=== PATIENT | male | born 1960 | race Caucasian/White ===

== ENCOUNTER 2022-07-22 16:33 | Emergency (ER) | payer BC, SELFPAY ==
[2022-07-22] VITALS (53 sets, daily range): BP systolic 148–186; BP diastolic 73–111; PULSE 60–73; RESP 14–20; TEMP 36.4; O2SAT 94–100; BMI 30.8
--- NOTE | 2022-07-22 16:52 | ED.GENADULT ---
HPI - General Adult General Time Seen by Provider: 16:53 Date Seen: 07/22/22 Chief complaint: Chest Pain Stated complaint: Chest pains, Right arm numbness Time Seen by Provider: 07/22/22 16:39 Source: patient and RN notes reviewed Mode of arrival: ambulatory Limitations: no limitations History of Present Illness HPI narrative: Patient is a 7-year-old male presenting with his with episodic chest pain. He does not have any chest pain now. Over the last 2 days he has had 4 episodes at work and then 1 episode just walking to the mailbox. The chest pain came in the substernal lower chest area centrally with walking. He was at work for 4 these and the more he would walk the more intense it got. The last episode that he had earlier today at work, when he got back to his office he sat in the chair and noted right arm numbness but he could still uses arm. He also broke out in a cold sweat with that. He felt short of breath that time. Does not have a known cardiac history. He has not been sick recently no cough or cold symptoms. He was wondering if it was just reflux. Rest took the symptoms away. He has not taken any aspirin today, does not take aspirin. He has had no recent surgery, is never been told he has no indication for stain away from aspirin. After work, he attempted just to walk a short distance to the mailbox and the pain came back. He went to the house and sat in a recliner in the pain went away. With the right arm numbness, he states he could fully use it. The arm numbness came on after the chest symptoms. Related Data Home Medications Medication Instructions Recorded Confirmed No Known Home Medications 07/22/22 07/22/22 Allergies Allergy/AdvReac Type Severity Reaction Status Date / Time Penicillins Allergy Unknown Verified 07/22/22 16:51 Review of Systems Status of ROS: Reports: 10 or more systems reviewed and unremarkable except as noted in History and below PFSH PFS Social History Smoking Status: Current every day smoker What tobacco products do you use: cigarettes Smoking packs per day: 1 Smoking cigarettes per day: 20.0 Second hand tobacco smoke exposure: Yes How often do you have a drink containing alcohol: never How often do you have six or more drinks on one occasion: Never AUDIT-C Alcohol total score: 0 Non-prescribed substance use: denies use Exam Const: Vital Signs, click to edit/add: Vital Signs - 24 hr 07/22/22 16:48 07/22/22 17:24 07/22/22 17:37 Temperature 97.6 F Pulse Rate Pulse Rate [Pulse Oximeter] 73 65 Respiratory Rate 14 Blood Pressure Blood Pressure [Ri ght Upper Arm] 186/111 H 172/90 H Pulse Oximetry 98 98 97 Oxygen Delivery Me thod Room Air Room Air 07/22/22 17:08 07/22/22 17:15 07/22/22 17:32 Temperature Pulse Rate 72 71 Pulse Rate [Pulse Oximeter] Respiratory Rate Blood Pressure 172/90 H Blood Pressure [Ri ght Upper Arm] Pulse Oximetry 97 95 Oxygen Delivery Me thod 07/22/22 17:35 07/22/22 17:45 07/22/22 18:00 Temperature Pulse Rate 67 64 65 Pulse Rate [Pulse Oximeter] Respiratory Rate Blood Pressure Blood Pressure [Ri ght Upper Arm] Pulse Oximetry 96 95 97 Oxygen Delivery Me thod 07/22/22 18:02 07/22/22 18:03 07/22/22 18:15 Temperature Pulse Rate 65 64 65 Pulse Rate [Pulse Oximeter] Respiratory Rate Blood Pressure 176/93 H Blood Pressure [Ri ght Upper Arm] Pulse Oximetry 98 97 96 Oxygen Delivery Me thod 07/22/22 18:30 07/22/22 18:32 07/22/22 18:33 Temperature Pulse Rate 66 65 66 Pulse Rate [Pulse Oximeter] Respiratory Rate Blood Pressure 167/89 H Blood Pressure [Ri ght Upper Arm] Pulse Oximetry 97 95 97 Oxygen Delivery Me thod 07/22/22 18:45 07/22/22 19:00 07/22/22 19:02 Temperature Pulse Rate 66 63 64 Pulse Rate [Pulse Oximeter] Respiratory Rate Blood Pressure 174/90 H Blood Pressure [Ri ght Upper Arm] Pulse Oximetry 96 96 97 Oxygen Delivery Me thod 07/22/22 19:15 07/22/22 19:30 07/22/22 19:33 Temperature Pulse Rate 64 65 65 Pulse Rate [Pulse Oximeter] Respiratory Rate Blood Pressure 173/91 H Blood Pressure [Ri ght Upper Arm] Pulse Oximetry 97 96 95 Oxygen Delivery Me thod 07/22/22 19:34 07/22/22 19:45 07/22/22 20:00 Temperature Pulse Rate 63 63 69 Pulse Rate [Pulse Oximeter] Respiratory Rate Blood Pressure Blood Pressure [Ri ght Upper Arm] Pulse Oximetry 96 97 98 Oxygen Delivery Me thod 07/22/22 20:02 07/22/22 20:10 07/22/22 20:03 Temperature Pulse Rate 61 61 Pulse Rate [Pulse Oximeter] Respiratory Rate 20 Blood Pressure 162/89 H Blood Pressure [Ri ght Upper Arm] Pulse Oximetry 97 97 Oxygen Delivery Me thod 07/22/22 20:15 07/22/22 20:30 07/22/22 20:32 Temperature Pulse Rate 62 64 63 Pulse Rate [Pulse Oximeter] Respiratory Rate Blood Pressure 157/79 H Blood Pressure [Ri ght Upper Arm] Pulse Oximetry 97 96 95 Oxygen Delivery Me thod 07/22/22 20:45 07/22/22 21:00 07/22/22 21:02 Temperature Pulse Rate 64 63 61 Pulse Rate [Pulse Oximeter] Respiratory Rate Blood Pressure 163/78 H Blood Pressure [Ri ght Upper Arm] Pulse Oximetry 95 96 96 Oxygen Delivery Me thod 07/22/22 21:15 07/22/22 21:30 07/22/22 21:32 Temperature Pulse Rate 63 63 61 Pulse Rate [Pulse Oximeter] Respiratory Rate Blood Pressure 180/96 H Blood Pressure [Ri ght Upper Arm] Pulse Oximetry 96 97 97 Oxygen Delivery Me thod 07/22/22 21:33 07/22/22 21:45 07/22/22 22:00 Temperature Pulse Rate 62 64 62 Pulse Rate [Pulse Oximeter] Respiratory Rate Blood Pressure Blood Pressure [Ri ght Upper Arm] Pulse Oximetry 97 97 98 Oxygen Delivery Me thod 07/22/22 22:03 07/22/22 22:06 07/22/22 22:15 Temperature Pulse Rate 60 60 71 Pulse Rate [Pulse Oximeter] Respiratory Rate Blood Pressure 185/82 H 172/83 H Blood Pressure [Ri ght Upper Arm] Pulse Oximetry 98 97 97 Oxygen Delivery Me thod 07/22/22 22:30 07/22/22 22:32 07/22/22 22:33 Temperature Pulse Rate 62 62 68 Pulse Rate [Pulse Oximeter] Respiratory Rate Blood Pressure 175/80 H Blood Pressure [Ri ght Upper Arm] Pulse Oximetry 100 97 98 Oxygen Delivery Me thod 07/22/22 22:45 07/22/22 23:00 07/22/22 23:03 Temperature Pulse Rate 60 63 69 Pulse Rate [Pulse Oximeter] Respiratory Rate Blood Pressure 167/77 H Blood Pressure [Ri ght Upper Arm] Pulse Oximetry 99 98 97 Oxygen Delivery Me thod 07/22/22 23:15 07/22/22 23:30 07/22/22 23:32 Temperature Pulse Rate 69 67 71 Pulse Rate [Pulse Oximeter] Respiratory Rate Blood Pressure 148/73 H Blood Pressure [Ri ght Upper Arm] Pulse Oximetry 96 95 95 Oxygen Delivery Me thod 07/22/22 23:33 07/22/22 23:45 07/23/22 00:00 Temperature Pulse Rate 69 70 74 Pulse Rate [Pulse Oximeter] Respiratory Rate Blood Pressure Blood Pressure [Ri ght Upper Arm] Pulse Oximetry 95 94 93 Oxygen Delivery Me thod 07/23/22 00:02 07/23/22 00:15 07/23/22 01:44 Temperature 96.9 F L Pulse Rate 75 76 Pulse Rate [Pulse Oximeter] Respiratory Rate 20 Blood Pressure 149/77 H Blood Pressure [Ri ght Upper Arm] Pulse Oximetry 94 93 Oxygen Delivery Me thod 07/23/22 00:30 07/23/22 00:32 07/23/22 00:45 Temperature Pulse Rate 74 75 68 Pulse Rate [Pulse Oximeter] Respiratory Rate Blood Pressure 148/75 H Blood Pressure [Ri ght Upper Arm] Pulse Oximetry 93 95 93 Oxygen Delivery Me thod 07/23/22 01:00 07/23/22 01:02 07/23/22 01:15 Temperature Pulse Rate 72 74 73 Pulse Rate [Pulse Oximeter] Respiratory Rate Blood Pressure 133/69 Blood Pressure [Ri ght Upper Arm] Pulse Oximetry 93 93 94 Oxygen Delivery Me thod 07/23/22 01:30 07/23/22 01:32 Temperature Pulse Rate 70 70 Pulse Rate [Pulse Oximeter] Respiratory Rate Blood Pressure 138/69 Blood Pressure [Ri ght Upper Arm] Pulse Oximetry 94 94 Oxygen Delivery Me thod Documenting provider has reviewed patient's vital signs: yes Common normals: no apparent distress, oriented x3, no limitations, healthy appearing, alert and well nourished General appearance: cooperative, comfortable, well kempt and well developed Nutritional appearance: overweight HENMT: Common normals: normocephalic, head/scalp atraumatic, hearing grossly normal bilaterally and external ears normal Head and scalp: normocephalic and atraumatic External ear: external ears normal Eye: Common normals: PERRL, EOMs intact bilaterally, conjunctivae normal and no scleral icterus Conjunctiva: conjunctiva(e) normal Pupil: PERRL Neck & C-Spine: Common normals: full ROM, no lymphadenopathy, supple, no meningeal signs, no JVD and thyroid normal Thyroid: thyroid normal Chest: Common normals: inspection of chest normal and palpation of chest normal Resp: Common normals: normal respiratory effort, no retractions, no use of accessory muscles and clear to auscultation bilaterally Auscultation: clear to auscultation bilaterally Cardio: Common normals: no JVD, regular rate, regular rhythm, S1 normal heart sound, S2 normal heart sound, no gallops, no clicks and no murmurs Rate: regular rate Rhythm: regular rhythm Heart sounds: S1 normal and S2 normal GI: Common normals: Normal to inspection, nondistended, normoactive bowel sounds present, soft to palpation, non-tender, no hepatosplenomegaly and no masses Palpation: soft and no hepatosplenomegaly Extremity: Common normals: no calf tenderness and no pedal edema Neuro: Common normals: oriented x3 Sensorium/orientation: alert Meningeal signs: no meningeal signs Psych: Appearance: well kempt Course Course Hospital Course: Patient's history is very concerning for angina/unstable angina. Nursing staff has a point of care troponin running. We will give him 324 mg aspirin chewable. Will get a portable chest x-ray and full complement of labs including D-dimer. I am concerned that this represents atherosclerotic coronary artery disease. Other potential etiologies are atypical presentation of pulmonary emboli, dissection or aneurysm. He will be monitored on pulse oximetry and cardiac monitoring. If they would need to go away of a case therapist, have reviewed this with them and they would choose [facility]. The understand right now that it is extremely tenuous with transfers, if it comes to that I will do my best but he may need to see Cardiology were ever we can get him to. Reevaluation(s) Reevaluation #1: Have reviewed with patient and his that the troponin is starting to trend up, explain this to them. Reviewed the EKGs in the concern for the pattern of distribution. Am awaiting a call back from [facility] to see if they will accept him. He is still pain free. Reviewed heparin, have ordered this. Went over risks and benefits of heparin. He consents to treatment with this. Time: 21:30 Consultations Consultation #1: Have contacted transfer center at [facility], spoke with DAIANA Jacques. He will be reviewing EKG/labs with cardiology and calling back. Did speak with Dr. Zamzam Hernandez initially, she did not accept patient, wanted the 3 hour troponin, stated that she had others in queue with higher acuity needs. Will call back when I have that. Spoke with Cristopher cardiology triage officer at 933pm, they have no bed availability, we can call back in the morning to see if there have been discharges. They have no wait list. Patient is updated on this, happy to go to the [facility] if we can arrange. Still chest pain free at rest. Time: 18:18 Consultation #2: Spoke with the hospitalist at [place] Dr. Min. She will except, we will have about a 4-8 hour wait for bed placement. Time: 22:22 Vital Signs Vital signs: Initial Vital Signs Temperature 97.6 F 07/22/22 16:48 Temperature Source Temporal Artery Scan 07/22/22 16:48 Pulse Rate 73 07/22/22 16:48 Blood Pressure 186/111 H 07/22/22 16:48 Blood Pressure Mean 136 07/22/22 16:48 Blood Pressure Position Supine 07/22/22 16:48 Pulse Oximetry 98 07/22/22 16:48 Oxygen Delivery Method 07/22/22 16:48 Vital Signs Temperature 97.6 F 07/22/22 16:48 Pulse Rate 73 07/22/22 16:48 Blood Pressure 186/111 H 07/22/22 16:48 Pulse Oximetry 98 07/22/22 16:48 Oxygen Delivery Method 07/22/22 16:48 Temperature 96.9 F L 07/23/22 01:44 Pulse Rate 70 07/23/22 01:32 Respiratory Rate 20 07/23/22 01:44 Blood Pressure 138/69 07/23/22 01:32 Pulse Oximetry 94 07/23/22 01:32 Oxygen Delivery Method 07/22/22 17:37 Medical Decision Making Medical Records Medical records reviewed: Yes I reviewed the patient's medical records Medical records narrative: Medical Problems: Tubular adenoma Erectile dysfunction Annual physical exam HLD (hyperlipidemia) KAYLYN (obstructive sleep apnea) Sleep study revealed mild KAYLYN in Jun 2017. Bump Suspected cranial suture line. Surgical Problems: History of sinus surgery Polyp removal. History of colonoscopy 06/2016 to repeat 2019 Family History Problems: Family history of hyperlipidemia Parents. Family history of hypertension Parents. Social History Problems: Consumes alcohol occasionally Does not use illicit drugs Former smoker Stopped 03/15/17. Lab Data Lab results reviewed: Yes I reviewed the patient's lab results Labs: Lab Results 07/22/22 07/22/22 07/22/22 Range/Units 16:55 16:55 16:55 WBC 8.79 (4.50-11.00) K/uL RBC 5.15 (4.30-5.90) m/uL Hgb 15.0 (13.5-17.5) gm/dL Hct 43.8 (37.0-53.0) % MCV 85 (80-100) fL MCH 29 (26-34) pg MCHC 34 (32-36) gm/dL RDW Coeff of Isaiah 12.7 (11.5-15.5) % Plt Count 318 (140-440) K/uL Neut % (Auto) 67.6 (42.0-72.0) % Lymph % (Auto) 20.6 (20-44) % [place] % (Auto) 6.8 (0.0-11.0) % Eos % (Auto) 4.0 (0.0-7.0) % Baso % (Auto) 0.8 (0.0-3.0) % Neut # (Auto) 5.94 (1.7-7.0) K/uL Lymph # (Auto) 1.81 (0.90-2.90) K/uL [place] # (Auto) 0.60 (0.00-0.90) K/UL Eos # (Auto) 0.35 (0.00-0.50) K/uL Baso # (Auto) 0.07 (0.00-0.30) K/uL INR (0.91-1.10) APTT (23-33) Seconds D-Dimer Quant (PE/DVT) 0.29 (0.00-0.50) ug/ml Sodium 139 (135-149) mmol/L Potassium 4.0 (3.6-5.1) mmol/L Chloride 106 (96-114) mmol/L Carbon Dioxide 26 (20-32) mmol/L BUN 18 (7-30) mg/dL Creatinine 0.9 (0.5-1.5) mg/dL Estimated Creat Clear 90.12 Estimated GFR 98 ml/min Glucose 103 (60-115) mg/dL Calcium 9.1 (8.4-10.6) mg/dL Magnesium 2.1 (1.5-2.6) mg/dL Total Bilirubin 0.4 (0.1-1.5) mg/dL AST 21 (12-35) U/L ALT 26 (4-50) U/L Alkaline Phosphatase 110 (40-150) U/L Troponin I 0.04 (0.01-0.04) ng/mL C-Reactive Protein 0.7 (0.5-1.0) mg/dL NT-Pro-B Natriuret Pep 176 pg/mL Total Protein 7.2 (6.0-8.3) g/dL Albumin 4.4 (3.3-5.0) g/dL SARS-CoV-2 (PCR) (Negative) POC Troponin I (0.01-0.04) ng/ml 07/22/22 07/22/22 07/22/22 Range/Units 17:04 17:04 17:07 WBC (4.50-11.00) K/uL RBC (4.30-5.90) m/uL Hgb (13.5-17.5) gm/dL Hct (37.0-53.0) % MCV (80-100) fL MCH (26-34) pg MCHC (32-36) gm/dL RDW Coeff of Isaiah (11.5-15.5) % Plt Count (140-440) K/uL Neut % (Auto) (42.0-72.0) % Lymph % (Auto) (20-44) % [place] % (Auto) (0.0-11.0) % Eos % (Auto) (0.0-7.0) % Baso % (Auto) (0.0-3.0) % Neut # (Auto) (1.7-7.0) K/uL Lymph # (Auto) (0.90-2.90) K/uL [place] # (Auto) (0.00-0.90) K/UL Eos # (Auto) (0.00-0.50) K/uL Baso # (Auto) (0.00-0.30) K/uL INR 0.97 (0.91-1.10) APTT 33 (23-33) Seconds D-Dimer Quant (PE/DVT) (0.00-0.50) ug/ml Sodium (135-149) mmol/L Potassium (3.6-5.1) mmol/L Chloride (96-114) mmol/L Carbon Dioxide (20-32) mmol/L BUN (7-30) mg/dL Creatinine (0.5-1.5) mg/dL Estimated Creat Clear Estimated GFR ml/min Glucose (60-115) mg/dL Calcium (8.4-10.6) mg/dL Magnesium (1.5-2.6) mg/dL Total Bilirubin (0.1-1.5) mg/dL AST (12-35) U/L ALT (4-50) U/L Alkaline Phosphatase (40-150) U/L Troponin I (0.01-0.04) ng/mL C-Reactive Protein (0.5-1.0) mg/dL NT-Pro-B Natriuret Pep pg/mL Total Protein (6.0-8.3) g/dL Albumin (3.3-5.0) g/dL SARS-CoV-2 (PCR) Negative SARS-CoV-2 (Negative) POC Troponin I 0.06 H (0.01-0.04) ng/ml 07/22/22 Range/Units 19:55 WBC (4.50-11.00) K/uL RBC (4.30-5.90) m/uL Hgb (13.5-17.5) gm/dL Hct (37.0-53.0) % MCV (80-100) fL MCH (26-34) pg MCHC (32-36) gm/dL RDW Coeff of Isaiah (11.5-15.5) % Plt Count (140-440) K/uL Neut % (Auto) (42.0-72.0) % Lymph % (Auto) (20-44) % [place] % (Auto) (0.0-11.0) % Eos % (Auto) (0.0-7.0) % Baso % (Auto) (0.0-3.0) % Neut # (Auto) (1.7-7.0) K/uL Lymph # (Auto) (0.90-2.90) K/uL [place] # (Auto) (0.00-0.90) K/UL Eos # (Auto) (0.00-0.50) K/uL Baso # (Auto) (0.00-0.30) K/uL INR (0.91-1.10) APTT (23-33) Seconds D-Dimer Quant (PE/DVT) (0.00-0.50) ug/ml Sodium (135-149) mmol/L Potassium (3.6-5.1) mmol/L Chloride (96-114) mmol/L Carbon Dioxide (20-32) mmol/L BUN (7-30) mg/dL Creatinine (0.5-1.5) mg/dL Estimated Creat Clear Estimated GFR ml/min Glucose (60-115) mg/dL Calcium (8.4-10.6) mg/dL Magnesium (1.5-2.6) mg/dL Total Bilirubin (0.1-1.5) mg/dL AST (12-35) U/L ALT (4-50) U/L Alkaline Phosphatase (40-150) U/L Troponin I 0.05 H (0.01-0.04) ng/mL C-Reactive Protein (0.5-1.0) mg/dL NT-Pro-B Natriuret Pep pg/mL Total Protein (6.0-8.3) g/dL Albumin (3.3-5.0) g/dL SARS-CoV-2 (PCR) (Negative) POC Troponin I (0.01-0.04) ng/ml Imaging Data Chest x-ray: Attestation: I have reviewed the pertinent imaging results. My impression: No acute pathology on my preliminary review of this portable chest x-ray. Radiologist's impression: Patient: TERI PAL Facility:?[facility] Patient ID:?[id number] Site Patient ID:?[id number]. Site :?[id number] Study:?XRay Chest PORTBLE ONE VIEW-07/22/2022 5:36:14 PM Ordering Physician:Ady Le Final Report: INDICATION: CHEST PAIN TECHNIQUE: Chest 1 view. COMPARISON: None. FINDINGS: Cardiovascular and mediastinum: Heart size and vasculature are normal in caliber and appearance. Mediastinum is within normal limits. Lungs and pleural space: Lungs are clear. No sign of infiltrate or mass. No sign of pleural effusion. No pneumothorax. Bones and soft tissues: No significant findings. IMPRESSION: Unremarkable chest. Dictated by: Anil Cantu MD @ 07/22/2022 17:55:18 (Electronic Signature) ECG Data Attestation: I personally reviewed and interpreted this ECG as follows: (Sinus rhythm with first-degree AV block, 60 beats per minute. He has flipped T-waves V1 through V4 but no definite ST segment changes, possibly very slight flat depression V2 V3. QT corrected 412 milliseconds.) Prior ECG tracings: not available for review Interpretation: Sinus rhythm with first degree AV block, flipped T waves V1-V4, no change from prior EKG. Critical Care Time Critical Care Time Critical Care Time: No Discharge Plan Discharge Clinical Impression: Non-ST elevated myocardial infarction (non-STEMI), Chest pain Patient Disposition: [facility] Prescriptions: No Action No Known Home Medications Stand Alone Forms: [employer] Info Instructions
--- NOTE | 2022-07-22 17:04 | CRLHL7_ITS ---
For Patients: As a result of the Century Cures Act, medical imaging exams and procedure reports are released immediately into your electronic medical record. You may view this report before your referring provider. If you have questions, please contact your health care provider. INDICATION: CHEST PAIN TECHNIQUE: Chest 1 view. COMPARISON: None. FINDINGS: Cardiovascular and mediastinum: Heart size and vasculature are normal in caliber and appearance. Mediastinum is within normal limits. Lungs and pleural space: Lungs are clear. No sign of infiltrate or mass. No sign of pleural effusion. No pneumothorax. Bones and soft tissues: No significant findings. IMPRESSION: Unremarkable chest. Dictated by: Anil Cantu MD @ 07/22/2022 17:55:18 (Electronically Signed)
[2022-07-22] MEDS: ASPIRIN 81 MG TAB.CHEW 324 MG PO (17:06)
[2022-07-22 17:13] LABS: Basophils Absolute Auto 0.07 K/uL (0.00-0.30); Basophils Percent Auto 0.8 % (0.0-3.0); Eosinophils Absolute Auto 0.35 K/uL (0.00-0.50); Hematocrit 43.8 % (37.0-53.0); Immature Granulocytes Abs Auto 0.02 K/uL (0.00-0.30); Immature Granulocytes Pct Auto 0.2 %; Lymphocytes Absolute Auto 1.81 K/uL (0.90-2.90); Lymphocytes Percent Auto 20.6 % (20-44); Mean Corpuscular HGB Conc 34 gm/dL (32-36); Mean Corpuscular Hemoglobin 29 pg (26-34); Mean Corpuscular Volume 85 fL (80-100); Monocytes Percent Auto 6.8 % (0.0-11.0); Neutrophils Absolute Auto 5.94 K/uL (1.7-7.0); Neutrophils Percent Auto 67.6 % (42.0-72.0); Platelet Count* 318 K/uL (140-440); RDW Coefficient of Variation % 12.7 % (11.5-15.5); Red Blood Count 5.15 m/uL (4.30-5.90); White Blood Count* 8.79 K/uL (4.50-11.00)
[2022-07-22 17:14] LABS: Troponin, Point-of-Care* 0.06 ng/ml (0.01-0.04)
[2022-07-22 17:21] LABS: Slide Review Reflex No
[2022-07-22 17:23] LABS: Albumin* 4.4 g/dL (3.3-5.0); Chloride* 106 mmol/L (96-114); Sodium* 139 mmol/L (135-149)
[2022-07-22 17:25] LABS: Creatinine* 0.9 mg/dL (0.5-1.5); Est. Creatinine Clearance* 90.12; Estimated Glomerular Filt Rate 98 ml/min
[2022-07-22 17:26] LABS: Alanine Aminotransferase* 26 U/L (4-50); Alkaline Phosphatase* 110 U/L (40-150); Aspartate Amino Transferase* 21 U/L (12-35); Bilirubin Total* 0.4 mg/dL (0.1-1.5); Blood Urea Nitrogen* 18 mg/dL (7-30); Carbon Dioxide* 26 mmol/L (20-32); Total Protein* 7.2 g/dL (6.0-8.3)
[2022-07-22 17:27] LABS: Calcium* 9.1 mg/dL (8.4-10.6); Glucose* 103 mg/dL (60-115); Magnesium* 2.1 mg/dL (1.5-2.6)
[2022-07-22 17:28] LABS: D Dimer Quantitative* 0.29 ug/ml (0.00-0.50)
[2022-07-22 17:29] LABS: C Reactive Protein* 0.7 mg/dL (0.5-1.0)
[2022-07-22 17:37] LABS: NT Pro B Type NatriureticPept* 176 pg/mL
[2022-07-22 17:38] LABS: Troponin I* 0.04 ng/mL (0.01-0.04)
[2022-07-22 17:53] LABS: SARS PCR* Negative SARS-CoV-2 (Negative)
[2022-07-22 20:35] LABS: Troponin I* 0.05 ng/mL (0.01-0.04)
[2022-07-22 21:49] LABS: INR 0.97 (0.91-1.10); Partial Thromboplastin Time* 33 Seconds (23-33); Prothrombin Time 13.5 Seconds
[2022-07-22] MEDS: HEPARIN 5,000 UNIT/0.5 ML INJ 4000 UNIT IVP (22:20)
[2022-07-22] MEDS: HEPARIN 25,000 UNIT/500 ML BAG 20 UNIT IV (22:21)
[2022-07-22] MEDS: SODIUM CHLORIDE 0.9 % (FLUSH) 10 ML SYRINGE 5 ML IVF (22:22)
--- NOTE | 2022-07-22 23:20 | ED.NURSE ---
Gave report to Nikki at [facility] room # [id number], EMS called. Continues to have no CP or numbness. Denies Pain. Heparin gtt started
[2022-07-23] VITALS (12 sets, daily range): BP systolic 133–149; BP diastolic 69–77; PULSE 68–76; RESP 20; TEMP 36.1; O2SAT 93–95
--- NOTE | 2022-07-23 01:45 | ED.NURSE ---
pt tx with EMS, updated RN at [facility]. Vitally stable on transfer. Room air. Denies pain and CP
== END 2022-07-23 01:49 | disposition short-term general hospital (02) ==
PROVIDERS: Emergency Provider Family Medicine; PCP Family Medicine
DX: I21.4 Non-ST elevation (NSTEMI) myocardial infarction (principal)
CPT/HCPCS: 36415; 71045; 80053; 83735; 83880; 84484; 85025; 85027; 85379; 85610; 85730; 86140; 87635; 93005; 94761; 96374; 99285; A9270; J1644

== ENCOUNTER 2022-07-23 01:36 | Outpatient (CLI) | payer BC, SELFPAY | END 2022-07-23 01:37 | disposition home or self-care (01) | LOC: AMB 07:19 | PROVIDERS: PCP Family Medicine; Visit Provider Family Medicine | DX: R07.89 Other chest pain (principal) | CPT/HCPCS: A0425; A0434 ==

== ENCOUNTER 2022-07-28 15:37 | Outpatient (CLI) | payer BC, SELFPAY ==
[2022-07-28 22:36] LABS: Chloride* 105 mmol/L (96-114); Potassium* 4.6 mmol/L (3.6-5.1); Sodium* 140 mmol/L (135-149)
[2022-07-28 22:39] LABS: Carbon Dioxide* 26 mmol/L (20-32)
[2022-07-28 22:40] LABS: Blood Urea Nitrogen* 22 mg/dL (7-30); Calcium* 9.5 mg/dL (8.4-10.6); Glucose* 119 mg/dL (60-115)
[2022-07-28 22:59] LABS: Creatinine* 1.2 mg/dL (0.5-1.5); Estimated Glomerular Filt Rate 69 ml/min
== END 2022-07-28 15:38 | disposition home or self-care (01) ==
LOC: FRMREF 15:37
PROVIDERS: PCP Family Medicine; Visit Provider Family Medicine
DX: I21.4 Non-ST elevation (NSTEMI) myocardial infarction (principal)
CPT/HCPCS: 80048

== ENCOUNTER 2022-12-23 07:16 | Emergency (ER) | payer BC, SELFPAY ==
[2022-12-23] VITALS (9 sets, daily range): BP systolic 104–129; BP diastolic 55–84; PULSE 53–62; RESP 16–18; TEMP 35.8; O2SAT 96–100; BMI 30.7
--- NOTE | 2022-12-23 08:10 | CRLHL7_ITS ---
For Patients: As a result of the Century Cures Act, medical imaging exams and procedure reports are released immediately into your electronic medical record. You may view this report before your referring provider. If you have questions, please contact your health care provider. Indication: Chest Pain Comparison: None available. Technique: Single AP view chest Findings: There is mild interstitial prominence. There is no focal consolidation, effusion, or pneumothorax. The cardiac silhouette is mildly prominent. The bony thorax is grossly intact. Impression: Mild interstitial prominence which may represent minimal pulmonary vascular congestion. No dense consolidation is identified. Dictated by Luan Casiano MD @ 12/23/2022 8:35:33 AM (Electronically Signed)
--- NOTE | 2022-12-23 08:10 | ED.CHESTPAIN ---
HPI - Chest Pain General Time Seen by Provider: 08:00 Date Seen: 12/23/22 Chief Complaint: Chest Pain Stated Complaint: chest tightness,heartburn feeling, shortness of br Time Seen by Provider: 12/23/22 07:58 Source: patient and RN notes reviewed Mode of arrival: ambulatory Limitations: no limitations History of Present Illness HPI narrative: Patient is a 62-year-old male coming in with an episode of chest burning reminiscent of symptoms similar to his heart attack in July. He was at work just walking a short distance where he had some lower substernal heartburn type feeling. [place] like he could not per just felt uncomfortable. Went to his office in took an 81 mg aspirin and sublingual nitroglycerin. Symptoms completely resolved. He has 2 stents in LAD distribution per his report. He also has found out that he does have peripheral arterial disease, they show me a CT report that does show some distal peripheral blockage. He notes if he walks any distance he will get a burning sensation in his calves. With his heart attack in July, was having some heartburn type symptoms that worsened 1 day to the point that he came in. He had this similar sense of not being able to burp in being uncomfortable. He states he was found have a heart attack and transferred to [place]. No shortness of breath. He did take an 81 mg aspirin at home with his morning meds as well as the extra 1 at work. He is on Brilinta, cholesterol medicine and lisinopril. Pertinent past history: coronary artery disease and prior ME Prior episodes: Yes Onset: during exertion Pain radiation: none Related Data Home Medications Medication Instructions Recorded Confirmed aspirin 81 mg tablet,delayed 81 mg PO QDAY 07/28/22 12/23/22 release nitroglycerin 0.4 mg sublingual 0.4 mg sublingual Q5M PRN 07/28/22 12/23/22 tablet Previous Rx's Medication Instructions Recorded amlodipine 2.5 mg tablet 2.5 mg PO QDAY #90 tabs 08/29/22 bupropion HCl 150 mg 24 hr tablet, 150 mg PO QAM #90 tabs 10/28/22 extended release (Wellbutrin XL) carvedilol 25 mg tablet 25 mg PO BID #180 tabs 10/28/22 losartan 50 mg tablet 50 mg PO QDAY #90 tabs 05/16/23 rosuvastatin 20 mg tablet 20 mg PO QHS #90 tabs 10/28/22 ticagrelor 90 mg tablet (Brilinta) 90 mg PO BID #180 tabs 10/28/22 Allergies Allergy/AdvReac Type Severity Reaction Status Date / Time Penicillins Allergy Unknown Verified 10/30/22 14:49 Review of Systems Status of ROS Reports: 6 or more systems reviewed and unremarkable except as noted in History and below [facility] Medical History (Updated 12/23/22 @ 10:57 by Mimi Soliz MD) NSTEMI (non-ST elevated myocardial infarction) ?I21.4 - Non-ST elevation (NSTEMI) myocardial infarction (ICD-10) Tubular adenoma ?D36.9 - Benign neoplasm, unspecified site (ICD-10) History of smoking ?Z87.891 - Personal history of nicotine dependence (ICD-10) Pediculosis corporis ?B85.1 - Pediculosis due to Pediculus humanus corporis (ICD-10) Surgical History (Updated 08/02/22 @ 11:43 by Ronal Escalante) History of sinus surgery ?Z98.890 - Other specified postprocedural states (ICD-10) History of colonoscopy ?Z98.890 - Other specified postprocedural states (ICD-10) Family History (Updated 08/02/22 @ 11:43 by Ronal Escalante) Mother Hyperlipidemia High blood pressure Father Hyperlipidemia High blood pressure Social History (Updated 08/08/22 @ 16:16 by Domi Thomas MD) Narrative: consumes alcohol occasionally does not use illicit drugs former smoker- stopped 03/15/17 Smoking Status: Former smoker What tobacco products do you use: cigarettes Smoking packs per day: 1 Smoking cigarettes per day: 20.0 Smoking quit date/years: <= 15 years ago Second hand tobacco smoke exposure: Yes How often do you have a drink containing alcohol: monthly or less How often do you have six or more drinks on one occasion: Never AUDIT-C Alcohol total score: 1 Non-prescribed substance use: denies use Little interest or pleasure in doing things: more than half the days Feeling down, depressed, or hopeless: several days Exam Const Vital Signs, click to edit/add: Vital Signs - 24 hr 12/23/22 07:22 12/23/22 07:30 12/23/22 08:00 Temperature 96.4 F L Pulse Rate Pulse Rate [Pulse Oximeter] 62 60 59 L Respiratory Rate 16 18 18 Blood Pressure [Right Upper Arm] 120/68 114/61 104/60 Pulse Oximetry 99 99 96 Oxygen Delivery Method Room Air Room Air Room Air 12/23/22 08:30 12/23/22 09:00 12/23/22 09:13 Temperature Pulse Rate 53 L Pulse Rate [Pulse Oximeter] 58 L 57 L Respiratory Rate 18 18 Blood Pressure [Right Upper Arm] 114/66 115/64 Pulse Oximetry 97 96 99 Oxygen Delivery Method Room Air Room Air Documenting provider has reviewed patient's vital signs: yes Common normals: no apparent distress, average body habitus, oriented x3, no limitations, healthy appearing and alert General appearance: cooperative, comfortable, well kempt and well developed HENMT Common normals: normocephalic, head/scalp atraumatic and hearing grossly normal bilaterally Head and scalp: normocephalic and atraumatic Eye Common normals: PERRL, EOMs intact bilaterally, conjunctivae normal and no scleral icterus Conjunctiva: conjunctiva(e) normal Pupil: PERRL Neck & C-Spine Common normals: full ROM, no lymphadenopathy, supple and no JVD Chest Common normals: inspection of chest normal and palpation of chest normal Resp Common normals: normal respiratory effort, no retractions, no use of accessory muscles and clear to auscultation bilaterally Effort & inspection: able to speak in complete sentences Auscultation: clear to auscultation bilaterally Cardio Common normals: no JVD, regular rate, regular rhythm, S1 normal heart sound, S2 normal heart sound, no gallops and no clicks Rate: regular rate Rhythm: regular rhythm Heart sounds: S1 normal and S2 normal GI Common normals: Normal to inspection, nondistended, normoactive bowel sounds present, soft to palpation, non-tender, no hepatosplenomegaly and no masses Palpation: soft and no hepatosplenomegaly Extremity Other: No lower extremity edema. Neuro Common normals: oriented x3 Sensorium/orientation: alert Psych Appearance: well kempt Course Course Hospital Course: This 62-year-old male certainly has symptoms that are consistent similar to prior cardiac presentation. We will have him on pulse oximetry, cardiac monitoring, obtain troponin and EKG. Will get full complement of labs, portable chest x-ray. His episode happened about 615-630, will need a 3 hour troponin which I would place at 9:30 a.m.. He will not have a full 3 hour interval between his true troponins and may warrant further following beyond that but would certainly like to have a 3 hour troponin from the time of his symptoms. At this point, he is hemodynamically stable and pain-free. He has taken a total of 162 mg of aspirin today, will await troponin and EKG results and see how he does clinically. We will certainly be talking to Cardiology for a plan for him either way. Reevaluation(s) Time of Reevaluation #1: 10:26 Reevaluation #1: Heart enzymes have remained normal. Awaiting to see 2nd followup EKG. He is asymptomatic. We will page out Cardiology from [place] to review case and come up with a disposition for patient. Time of Reevaluation #2: 11:37 Reevaluation #2: [facility] has given patient his test time, he will be having his coronary CT this coming . He remains asymptomatic, will plan to discharge. Consultations Consultation #1: Spoke with Dr. Piña from Cardiology at [place]. He agrees is hard to know exactly what is going on given the brief duration, history. He would not recommend repeat catheterization at this time. They are going to try to get this patient scheduled for coronary CT, may be able to do it even tomorrow. Time: 10:41 Vital Signs Vital signs: Initial Vital Signs Temperature 96.4 F L 12/23/22 07:22 Temperature Source Temporal Artery Scan 12/23/22 07:22 Pulse Rate 62 12/23/22 07:22 Respiratory Rate 16 12/23/22 07:22 Blood Pressure 120/68 12/23/22 07:22 Blood Pressure Mean 85 12/23/22 07:22 Blood Pressure Position Supine 12/23/22 07:22 Pulse Oximetry 99 12/23/22 07:22 Oxygen Delivery Method Room Air 12/23/22 07:22 Vital Signs Temperature 96.4 F L 12/23/22 07:22 Pulse Rate 62 12/23/22 07:22 Respiratory Rate 16 12/23/22 07:22 Blood Pressure 120/68 12/23/22 07:22 Pulse Oximetry 99 12/23/22 07:22 Oxygen Delivery Method Room Air 12/23/22 07:22 Temperature 96.4 F L 12/23/22 07:22 Pulse Rate 60 12/23/22 11:00 Respiratory Rate 18 12/23/22 10:30 Blood Pressure 129/55 L 12/23/22 11:00 Pulse Oximetry 99 12/23/22 11:00 Oxygen Delivery Method Room Air 12/23/22 11:00 MDM - Chest Pain Lab Data Attestation: I reviewed the patient's lab results. Labs: Lab Results 12/23/22 12/23/22 12/23/22 Range/Units 07:30 08:39 09:42 WBC 8.43 (4.50-11.00) K/uL RBC 4.87 (4.30-5.90) m/uL Hgb 14.3 (13.5-17.5) gm/dL Hct 42.1 (37.0-53.0) % MCV 86 (80-100) fL MCH 29 (26-34) pg MCHC 34 (32-36) gm/dL RDW Coeff of Isaiah 12.6 (11.5-15.5) % Plt Count 279 (140-440) K/uL Neut % (Auto) 77.3 H (42.0-72.0) % Lymph % (Auto) 13.2 L (20-44) % [place] % (Auto) 5.9 (0.0-11.0) % Eos % (Auto) 2.8 (0.0-7.0) % Baso % (Auto) 0.4 (0.0-3.0) % Neut # (Auto) 6.50 (1.7-7.0) K/uL Lymph # (Auto) 1.10 (0.90-2.90) K/uL [place] # (Auto) 0.50 (0.00-0.90) K/UL Eos # (Auto) 0.24 (0.00-0.50) K/uL Baso # (Auto) 0.03 (0.00-0.30) K/uL Abs Immat Gran (auto) 0.03 (0.00-0.30) K/uL Imm/Tot Granulo (auto) 0.4 % Sodium 139 (135-149) mmol/L Potassium 4.3 (3.6-5.1) mmol/L Chloride 103 (96-114) mmol/L Carbon Dioxide 28 (20-32) mmol/L BUN 17 (7-30) mg/dL Creatinine 1.2 (0.5-1.5) mg/dL Estimated Creat Clear 66.75 Estimated GFR 69 ml/min Glucose 122 H (60-115) mg/dL Lactate 0.6 (0.5-1.9) mmol/L Calcium 9.5 (8.4-10.6) mg/dL Magnesium 2.1 (1.5-2.6) mg/dL Total Bilirubin 0.7 (0.1-1.5) mg/dL AST 26 (12-35) U/L ALT 36 (4-50) U/L Alkaline Phosphatase 113 (40-150) U/L Troponin I < 0.01 L (0.01-0.04) ng/mL NT-Pro-B Natriuret Pep 144 pg/mL Total Protein 8.1 (6.0-8.3) g/dL Albumin 4.9 (3.3-5.0) g/dL Lipase 34 (23-300) U/L POC Troponin I 0.01 0.00 L (0.01-0.04) ng/ml Imaging Data Chest x-ray: Attestation: I have reviewed the pertinent imaging results. Radiologist's impression: Patient: TERI PAL Facility:?[facility] Patient ID:?[id number] Site Patient ID:?[id number]. Site :?[id number] Study:?XRay Chest 1 VIEW PORTABLE-12/23/2022 8:27:41 AM Ordering Physician:?Martínez Le Final Report: Indication: Chest Pain Comparison: None available. Technique: Single AP view chest Findings: There is mild interstitial prominence. There is no focal consolidation, effusion, or pneumothorax. The cardiac silhouette is mildly prominent. The bony thorax is grossly intact. Impression: Mild interstitial prominence which may represent minimal pulmonary vascular congestion. No dense consolidation is identified. Dictated by Luan Casiano MD @ 12/23/2022 8:35:33 AM (Electronic Signature) ECG Data Attestation: I personally reviewed and interpreted this ECG as follows: (Sinus rhythm with first-degree AV block, 60 beats per minute. Flipped T-waves isolated in aVL, V1 and V2, no ST segment changes. No definitive ischemia. QT corrected 400 milliseconds.) ECG interpretation date: 12/23/22 ECG interpretation time: 08:35 Prior ECG tracings: available for review (Compared to EKG from July, more prominent flipped T-waves in the anterior precordial leads V1 through V4 on that EKG.) Interpretation: EKG showing sinus bradycardia with first-degree AV block, 57 beats per minute. Flipped T-waves V1 V2 as well as aVL without any ST segment changes. Critical Care Time Critical Care Time Critical Care Time: No Discharge Plan Discharge Clinical Impression: Atherosclerotic coronary vascular disease, Chest pain Patient Disposition: Home, Self-Care Condition: Stable Instructions: Coronary Artery Disease (DC), Chest Pain (ED) Additional Instructions: Need to return for further evaluation if your heartburn/chest pain returns at all. If there are other concerns for symptoms that are associated with possible heart attack or coronary vascular issues, please seek re-evaluation in the interim. Proceed with getting the coronary CT through [facility] as they have scheduled for you. Stay on your current medications. Activity Level: Activity as Tolerated and No strenuous activity Activity Detail: Would not recommend excessively strenuous activity until the CT angiogram has been done. Prescriptions: No Action amlodipine 2.5 mg tablet 2.5 mg PO QDAY Qty: 90 3RF aspirin 81 mg tablet,delayed release (DR/EC) 81 mg PO QDAY nitroglycerin 0.4 mg tablet, sublingual 0.4 mg sublingual Q5M PRN Rx Instructions: do not exceed 3 doses per episode bupropion HCl [Wellbutrin XL] 150 mg tablet extended release 24 hr 150 mg PO QAM Qty: 90 3RF carvedilol 25 mg tablet 25 mg PO BID Qty: 180 3RF Rx Instructions: must administer with a meal/food losartan 50 mg tablet 50 mg PO QDAY Qty: 90 3RF rosuvastatin 20 mg tablet 20 mg PO QHS Qty: 90 3RF Brilinta 90 mg tablet 90 mg PO BID Qty: 180 3RF Follow Up/Referrals: Domi Thomas MD [Primary Care Provider] - Stand Alone Forms: [employer] Info Instructions
[2022-12-23 08:43] LABS: Lactate* 0.6 mmol/L (0.5-1.9)
[2022-12-23 08:45] LABS: Troponin, Point-of-Care* 0.01 ng/ml (0.01-0.04)
[2022-12-23 09:04] LABS: Basophils Absolute Auto 0.03 K/uL (0.00-0.30); Basophils Percent Auto 0.4 % (0.0-3.0); Eosinophils Absolute Auto 0.24 K/uL (0.00-0.50); Eosinophils Percent Auto 2.8 % (0.0-7.0); Hematocrit 42.1 % (37.0-53.0); Hemoglobin* 14.3 gm/dL (13.5-17.5); Immature Granulocytes Abs Auto 0.03 K/uL (0.00-0.30); Immature Granulocytes Pct Auto 0.4 %; Lymphocytes Percent Auto 13.2 % (20-44); Mean Corpuscular HGB Conc 34 gm/dL (32-36); Mean Corpuscular Hemoglobin 29 pg (26-34); Mean Corpuscular Volume 86 fL (80-100); Monocytes Percent Auto 5.9 % (0.0-11.0); Neutrophils Percent Auto 77.3 % (42.0-72.0); Platelet Count* 279 K/uL (140-440); RDW Coefficient of Variation % 12.6 % (11.5-15.5); Red Blood Count 4.87 m/uL (4.30-5.90); White Blood Count* 8.43 K/uL (4.50-11.00)
[2022-12-23 09:06] LABS: Albumin* 4.9 g/dL (3.3-5.0); Chloride* 103 mmol/L (96-114); Potassium* 4.3 mmol/L (3.6-5.1); Sodium* 139 mmol/L (135-149)
[2022-12-23 09:08] LABS: Creatinine* 1.2 mg/dL (0.5-1.5); Est. Creatinine Clearance* 66.75; Estimated Glomerular Filt Rate 69 ml/min
[2022-12-23 09:09] LABS: Alanine Aminotransferase* 36 U/L (4-50); Alkaline Phosphatase* 113 U/L (40-150); Aspartate Amino Transferase* 26 U/L (12-35); Bilirubin Total* 0.7 mg/dL (0.1-1.5); Blood Urea Nitrogen* 17 mg/dL (7-30); Calcium* 9.5 mg/dL (8.4-10.6); Carbon Dioxide* 28 mmol/L (20-32); Glucose* 122 mg/dL (60-115); Lipase* 34 U/L (23-300); Total Protein* 8.1 g/dL (6.0-8.3)
[2022-12-23 09:10] LABS: Magnesium* 2.1 mg/dL (1.5-2.6)
[2022-12-23 09:12] LABS: Slide Review Reflex No
[2022-12-23 09:49] LABS: NT Pro B Type NatriureticPept* 144 pg/mL; Troponin I* < 0.01 ng/mL (0.01-0.04)
== END 2022-12-23 11:50 | disposition home or self-care (01) ==
PROVIDERS: Emergency Provider Family Medicine; PCP Family Medicine
DX: I25.10 Atherosclerotic heart disease of native coronary artery without angina pectoris (principal)
CPT/HCPCS: 36415; 71045; 80053; 83605; 83690; 83735; 83880; 84484; 85025; 93005; 94761; 99285

== ENCOUNTER 2023-01-05 14:18 | Outpatient (CLI) | payer BC, SELFPAY ==
--- NOTE | 2023-01-05 15:00 | CRLHL7_ITS ---
For Patients: As a result of the Century Cures Act, medical imaging exams and procedure reports are released immediately into your electronic medical record. You may view this report before your referring provider. If you have questions, please contact your health care provider. INDICATION: Micronodules, possible sarcoid. COMPARISON: 11/11/2022. TECHNIQUE: CT of the chest with IV contrast. 75 cc of Isovue 370 administered intravenously. FINDINGS: Redemonstrated is mediastinal and bilateral hilar lymphadenopathy. A few clustered nodules are seen in the right upper lobe lateral segment on image 31, series 2, unchanged. Similarly, this is seen in the superior segment of the left lower lobe. A few scattered minor nodules additionally seen without significant change from previous. The posterior ground-glass opacification on this exam is most likely due to subsegmental atelectasis rather than pulmonary fibrosis, although unable to determine without prone imaging. No central PE. Severe coronary artery calcification. Adrenal glands appear unremarkable. Cysts upper pole right kidney. The spleen is normal size. Bones are stable. IMPRESSION: 1. Mediastinal and bilateral hilar lymphadenopathy is stable. 2. Small clustered nodules seen previously are stable. 3. No splenomegaly. Please note that all CT scans at this facility use dose modulation, iterative reconstruction, and/or weight-based dosing when appropriate to reduce radiation dose to as low as reasonably achievable. Dictated by Adam Carr MD @ 01/06/2023 10:26:52 AM (Electronically Signed)
== END 2023-01-05 14:19 | disposition home or self-care (01) ==
LOC: CT 14:18
PROVIDERS: PCP Family Medicine; Visit Provider Family Medicine
DX: R91.8 Other nonspecific abnormal finding of lung field (principal)
CPT/HCPCS: 71260; Q9967

== ENCOUNTER 2023-05-14 16:06 | Outpatient (CLI) | payer BC, SELFPAY | END 2023-05-14 16:07 | disposition home or self-care (01) | LOC: FRMREF 16:07 | PROVIDERS: PCP Family Medicine; Visit Provider Family Medicine | DX: R25.2 Cramp and spasm (principal) | CPT/HCPCS: 80048 ==

== ENCOUNTER 2023-10-30 20:16 | Outpatient (CLI) | payer BC, SELFPAY ==
--- OUTSIDE RECORDS SUMMARY | 2023-10-30 20:20 | XMS_ITS | Clinical Summary ---
Author Name Unknown Organization [facility] Address [place], [place] [address] Care Team Providers Care Elementary Reading Tutor Name Role Phone Domi Thomas MD Primary Care Provider [phone] Allergies Active Allergy Reactions Criticality Noted Date Comments Penicillins *Unknown - Childhood Rxn 07/23/2022 Medications Medication Sig Dispensed Refills Start Date End Date Status nitroglycerin (NITROSTAT) 0.4 mg sublingual tabletIndications: NSTEMI (non-ST elevated myocardial infarction) (HC),ASCVD (arteriosclerotic cardiovascular disease),Mixed hyperlipidemia Place 1 Tablet (0.4 mg) under the tongue every 5 minutes if needed for Chest Pain. 9 Tablet 2 3 Active rosuvastatin (CRESTOR) 20 mg tabletIndications: NSTEMI (non-ST elevated myocardial infarction) (HC),ASCVD (arteriosclerotic cardiovascular disease),Mixed hyperlipidemia Take 1 Tablet (20 mg) by mouth at bedtime. 90 Tablet 3 Active ticagrelor (BRILINTA) 90 mg tabletIndications: NSTEMI (non-ST elevated myocardial infarction) (HC),ASCVD (arteriosclerotic cardiovascular disease),S/P drug eluting coronary stent placement Take 1 Tablet (90 mg) by mouth two times daily for 1 year 90 Tablet 3 3 Active losartan (COZAAR) 50 mg tabletIndications: HTN (hypertension) Take 1 Tablet (50 mg) by mouth once daily. 90 Tablet 3 3 Active carvediloL (COREG) 25 mg tabletIndications: NSTEMI (non-ST elevated myocardial infarction) (HC),ASCVD (arteriosclerotic cardiovascular disease),Mixed hyperlipidemia,S/P drug eluting coronary stent placement,Smoking, HTN (hypertension) Take 1 Tablet (25 mg) by mouth two times daily with meals. 60 Tablet 2 3 Active amLODIPine (NORVASC) 2.5 mg tabletIndications: NSTEMI (non-ST elevated myocardial infarction) (HC),ASCVD (arteriosclerotic cardiovascular disease),Smoking,M oderate mixed hyperlipidemia not requiring statin therapy,HTN (hypertension) Take 2.5 mg by mouth once daily. 3 Active famotidine (PEPCID) 20 mg tablet Take 20 mg by mouth two times daily. Active buPROPion (Wellbutrin XL) 300 mg Extended-Release tablet Take 300 mg by mouth once daily. Active rivaroxaban (Xarelto) 20 mg tabletIndications: PAD (peripheral artery disease) (HC) Take 1 Tablet (20 mg) by mouth once daily with evening meal. 30 Tablet 3 4 Active oxyCODONE-acetamin ophen (PERCOCET) 5-325 mg per tabletIndications: PAD (peripheral artery disease) (HC),S/P angiogram of extremity Take 1 Tablet by mouth every 6 hours if needed for Pain. Max acetaminophen dose: 4000mg in 24 hrs. 5 Tablet 4 Active aspirin chewable 81 mg chewable tabletIndications: NSTEMI (non-ST elevated myocardial infarction) (HC),ASCVD (arteriosclerotic cardiovascular disease) Take 1 Tablet (81 mg) by mouth or nasogastric tube once daily. Take once daily indefinitely 90 Tablet 3 3 10/08/19 24 Discontinued( *IP Discontinued) buPROPion (Wellbutrin XL) 150 mg Extended-Release tablet Take 150 mg by mouth once daily. 10/08/19 24 Discontinued( Pharmacist change per medication history (E-cancel not sent)) Active Problems Problem Noted Date Diagnosed Date PAD (peripheral artery disease) 11/20/2022 NSTEMI (non-ST elevated myocardial infarction) 0 07/23/2022 HLD (hyperlipidemia) 07/23/2022 Smoking 07/23/2022 Encounters Date Type Department Care Team Description 10/08/2023 8:02 AM CDT - 10/08/2023 3:25 PM CDT Hospital Encounter [facility] [address] [place] [address] Ivana Villeda MD PAD (peripheral artery disease) (HC) (Primary Dx); S/P angiogram of extremity Discharge Disposition: Home Self Care 10/08/2023 Travel 10/05/2023 1:00 PM CDT Office Visit [facility] [address] [place] [address] Ivana Villeda MD CV Vascular Est ([facility] follow up; recurrent claudication after lower extremity angiogram. U/S scheduled prior.//PCP:Domi Thomas MD/) 10/05/2023 Telephone [facility] [address] [place] [address] Ivana Villeda MD Surgery Scheduled 10/05/2023 Travel 10/02/2023 12:30 PM CDT - 10/02/2023 11:59 PM CDT Hospital Encounter [facility] [address] [place] [address] Ivana Villeda MD Moore, Brian H PAD (peripheral artery disease) (HC); Claudication (HC) 10/02/2023 Travel 09/24/2023 9:00 AM CDT Office Visit [facility] [address] [place] [address] Jagdeep Azul MD 09/24/2023 Telephone [facility] [address] [place] [address] Ivana Villeda MD Appointment 09/24/2023 Orders Only [facility] [address] [place] [address] Ivana Villeda MD <No scans attached> 09/24/2023 Telephone [facility] [address] [facility] [address] [place] [phone] Jagdeep Azul MD Appointment Request (Vascular MO[facility]A appt needed) 09/24/2023 Orders Only [facility] [address] [place] [address] DARLINE Ruiz [id number] Jagdeep Azul MD <No scans attached> 08/27/2023 9:30 AM CDT Office Visit [facility] [address] [place] [address] Ivana Villeda MD Follow Up (peripheral artery disease/US 07/20/23/) 08/27/2023 Travel from Last 3 Months Social History Tobacco Use Types Packs/Day Years Used Date Smoking Tobacco: Former Cigarettes 1 30 Passive Smoke Exposure: Never Smokeless Tobacco: Never Tobacco Cessation:Counseling Given: Yes Comments:TIP 07/25/22 Alcohol Use Standard Drinks/Week Comments Not Currently 1 (1 standard drink = 0.6 oz pur e alcohol) Social Connections Answer Date Recorded Frequency of Communication with Friends and Fami ly Not on file 08/29/2022 Sex and Gender Information Value Date Recorded Sex Assigned at Not on file Gender Identity Not on file Sexual Orientation Not on file Obstetrics History Last Filed Vital Signs Vital Sign Reading Time Taken Comments Blood Pressure 104/54 10/08/2023 3:00 PM CDT Pulse 63 10/08/2023 3:00 PM CDT Temperature 36.2 ??C (97.2 ??F) 10/08/2023 9:00 AM CD T Respiratory Rate 18 07/02/2023 3:07 PM PHARMACIST TECHNICIAN Oxygen Saturation 99% 10/08/2023 3:00 PM CDT Inhaled Oxygen Concentration - - Weight 98.9 kg (218 lb) 10/08/2023 8:24 AM CDT Height 177.8 cm (5' 10) 10/08/2023 8:24 AM CDT Body Mass Index 31.28 10/08/2023 8:24 AM CDT Plan of Treatment Health Maintenance Due Date Last Done Comments Pneumococcal series for age 6-64 (1 of 2 - PCV) 12/03/1967 Tdap 1972 Depression screening for age 12+ 1973 HIV for age 15-65 1976 Hepatitis C screening for ag e 18-79 12/03/1979 Tetanus booster 1981 Colonoscopy through age 75 2006 Zoster (shingles) series for age 50+ (1 of 2) 12/03/2011 COVID-19 vaccine series (2022-24 season) 2023 04/10/2022, 07/03/2021, 09/22/2020, Additional history exists BMI (ht and wt on same day) for age 18+ 01/02/2024 01/01/2023 Influenza for age 50-64 02/14/2024 Lipids for age 45-75 04/24/2028 04/24/2023, 07/23/19 23 Procedures Procedure Name Priority Date/Time Associated Diagnosis Comments PV ABDOMINAL/LOWER EXTREMITY ANGIOGRAPHY Routine 10/08/2023 2:50 PM CDT [facility] ACTIVATED CLOTTING TM CV Timed 10/08/2023 10:52 AM CDT CBC W PLT NO DIFF Preop 10/08/2023 8:3 4 AM CDT BASIC METABOLIC PANEL Preop 10/08/2023 8:34 AM CDT SCAN-OPERATIVE/PROCE DURE REPORT 10/08/2023 12:00 AM CDT US ARTERIAL LOWER EXTREMITY W SHANTELLE BILATERAL Routine 10/02/2023 1:16 PM CDT PAD (peripheral artery disease) (HC) Claudication (HC) LIPID PANEL MOIRA 04/24/2023 9:01 AM PHARMACIST TECHNICIAN from Last 3 Months or Most Recently Relevant to Health Maintenance Results * PV ABDOMINAL/LOWER EXTREMITY ANGIOGRAPHY (10/08/2023 2:50 PM CDT) Anatomical Region Laterality Modality X-Ray Angiograph y Narrative 10/08/2023 2:50 PM CDT Ivana Villeda MD ? 10/08/2023 ??2:59 PM OPERATIVE REPORT SURGEON Ivana Villeda MD MANAGER STATISTICAL PROGRAMMING Maribel Rogers MD (Fellow) ANESTHESIA Moderate sedation/local PREOPERATIVE DIAGNOSIS left lower extremity atherosclerosis with life-limiting claudication POSTOPERATIVE DIAGNOSIS left lower extremity atherosclerosis with life-limiting claudication NAME OF OPERATION 1. US examination of right femoral vessels. 2. Selective catheterization of left posterior tibial artery 3. Diagnostic angiogram ??of aorta and bilateral iliac artery systems as well as Left common femoral, profunda, superficial femoral, popliteal, tibial arteries and foot run off. 4. Placement of stent in left SFA/popliteal artery using VIABAHN 7 mm x 25 mm and 7 mm x 15 mm stent. INDICATIONS FOR PROCEDURE Teri Pal is a ??62 y.o. with severe PAD s/p bilateral SFA interventions with most recent to recanulize occluded stent in left on 07/02/2023. He began to have new onset of severe life limiting claudication about two or so weeks ago. Noninvasives suggest stent occlusion. No prior contrast enhanced imaging has been obtained. ??Due to this I proposed diagnostic angiogram with possible left leg intervention. The procedure, risks, and consequences were described to the patient which include but not limited to: cardiopulmonary compromise, , need for reoperation, ??bleeding, infection, limb loss, and damage to nearby structures. The patient stated they understood these risks and wished to proceed. OPERATIVE FINDINGS Ultrasound examination of right CATERER HELPER revealed a patent vessel adequate for access. Access was more difficult than usual due to scarring from prior angiograms. Diagnostic angiogram of aorta and iliacs demonstrated patent aorta, renals, iliacs, CATERER HELPER and PFA. The proximal SFA was patent with mild disease and no flow limitation. In the distal portion about 3 centimeters proxima to stent edge, there was an occlusion of [place] vessel which extended to the distal stent. Distal to this was patent below knee popliteal artery reconstituting from profunda branches. His AT was occluded shortly after its origin. The peroneal and posterior tibial were patent to the ankle. The PT was main runoff into the foot. After stenting the SFA and popliteal arteries with VIABHAN, there was markedly improved flow. At the end of the case, there was a palpable PT with no immediate hematoma. DESCRIPTION OF PROCEDURE The surgical field was sterilely prepped and draped. A surgical ? time out? was performed to confirm that the appropriate side and site were identified. Access was obtained under ultrasound guidance using a micropuncture technique. A copy of the ultrasound was placed on the patient's permanent hospital chart. The ultrasound demonstrated the needle was seen entering the artery. After all sheath upsizing (if required) was completed, a 7 Fr. sheath was advanced into the SFA from the access artery. Using the appropriate wires, catheters and sheaths, the catheter tip or sheath was advanced to the CREATIVE RECRUITER. Arteriography was performed with the findings as outlined above. The SFA/popliteal artery with stenosis of 100% was treated with VIABAHN 7 mm x 25 mm and 7 mm x 15 mm stent . Completion imaging was performed. The residual stenosis was 0 %. The sheath was removed, puncture closed with Perclose devices, manual compression applied and the patient transported to the recovery area. SPECIMENS REMOVED None. ESTIMATED BLOOD LOSS Minimal. INTRAOPERATIVE FLUIDS 1000 cc. COUNTS All sponge, instrument, needle counts were correct at the end of the procedure. CONDITION ON DISCHARGE FROM OPERATING ROOM Stable. CONSCIOUS SEDATION I provided direct [id number] monitoring of conscious sedation during lower extremity angiogram with intervention which was administered by an independent trained nurse using intravenous Fentanyl 300 mcg/Versed 5.5 mg for 87 minutes. PRESENCE STATEMENT I was present for the entire operation. DATA ENTRY EMAIL PROCESSOR MEASURES We utilized approximately 20 cc of Optiray contrast and fluoroscopy time was 14.4 minutes (152 mGy). Ivana Villeda MD CV IMAGING * (ABNORMAL) ACTIVATED CLOTTING TIME [id number] ACT (10/08/2023 10:52 AM CDT) Pathologist [facility] ACTIVATED CLOTTING TIME, POCT 329(H) 74 - 125 sec 10/09/2023 11:10 AM CDT [facility] Blood BLOOD SPECIMEN / Unknown 10/08/2023 10:52 AM CDT 10/09/2023 11:10 AM CDT Ivana Villeda MD [facility] [address] [place] [address], * CBC with Platelets no Differential (10/08/2023 8:34 AM CDT) [facility] WHITE BLOOD COUNT 7.7 4.5 - 11.0 thou/cu mm 10/08/2023 8:48 AM CDT [facility] RED BLOOD COUNT 4.67 4.30 - 5.90 mil/cu mm 10/08/2023 8:48 AM CDT [facility] HEMOGLOBIN 13.5 13.5 - 17.5 g/dL 10/08/2023 8:48 AM CDT [facility] HEMATOCRIT 40.0 37.0 - 53.0 % 10/08/2023 8:48 AM CDT [facility] MCV 86 80 - 100 fL 10/08/2023 8:48 AM CDT [facility] MCH 28.9 26.0 - 34.0 pg 10/08/2023 8:48 AM CDT [facility] MCHC 33.8 32.0 - 36.0 g/dL 10/08/2023 8:48 AM CDT [facility] RDW 13.2 11.5 - 15.5 % 10/08/2023 8:48 AM CDT [facility] PLATELET COUNT 272 140 - 440 thou/cu mm 10/08/2023 8:48 AM CDT [facility] MPV 9.6 6.5 - 11.0 fL 10/08/2023 8:48 AM CDT [facility] NRBC 0.0 % 10/08/2023 8:48 AM CDT [facility] ABS NRBC 0.0 thou /cu mm 10/08/2023 8:48 AM CDT [facility] Blood BLOOD SPECIMEN / Unknown Non-Lab Venipuncture / Unknown 10/08/2023 8:34 AM CDT 10/08/2023 8:44 AM CDT Elizabeth DEL VALLE HEMATOLOGY [facility] [address] [place] [address], * (ABNORMAL) Basic Metabolic Panel (10/08/2023 8:34 AM CDT) SODIUM 140 136 - 145 mmol/L 10/08/2023 9:21 AM CDT [facility] POTASSIUM 4.6 3.5 - 5.1 mmol/L 10/08/2023 9:21 AM CDT [facility] CHLORIDE 107 98 - 107 mmol/L 10/08/2023 9:21 AM T [facility] CO2,TOTAL 23 22 - 29 mmol/L 10/08/2023 9:21 AM CDT [facility] ANION GAP 10 5 - 18 10/08/2023 9:21 AM T [facility] GLUCOSE 109(H) 70 - 99 mg/dL 10/08/2023 9:21 AM T [facility] CALCIUM 9.4 8.8 - 10.2 mg/dL 10/08/2023 9:21 AM T [facility] BUN 22 8 - 23 mg/dL 10/08/2023 9:21 AM T [facility] CREATININE 1.32(H) 0.70 - 1.20 mg/dL 10/08/2023 9:21 AM T [facility] BUN/CREAT RATIO 17 10 - 20 9:21 AM T [facility] eGFR 61(L) >90 mL/min/1.7 3m2 10/08/2023 9:21 AM T [facility] Comment:As of 2021, eG FR is calculated by the CKD-EPI creatinine equation without race adjustment. ??eGFR can be influenced by muscle mass, exercise, and diet. ??The reported eGFR is an estimation only and is only applicable if the renal function is stable. Blood BLOOD SPECIMEN / Unknown Non-Lab Venipuncture / Unknown 10/08/2023 8:34 AM CDT 10/08/2023 8:44 AM CDT Elizabeth DEL VALLE CHEMISTRY [facility] [address] [place] [address], * SCAN-OPERATIVE/PROCEDURE REPORT (10/08/2023 12:00 AM CDT) Narrative 10/08/2023 12:00 AM CDT Ordered by an unspecified provider. Other Clinical Staff OTHER * US ARTERIAL LOWER EXTREMITY W SHANTELLE BILATERAL (10/02/2023 1:16 PM CDT) Anatomical Region Laterality Modality LEGS Ultrasound 10/02/2023 12:4 7 PM CDT Narrative 10/02/2023 2:49 PM CDT VASCULAR ULTRASOUND REPORT TERI PAL Accession#: ?? [id number] : ?1960 ??Study Date: ?? 10/02/2023 12:47:20 PM Age: ?62 years ?? Tech: ? B[facility] Gender: M ?Referring MD: IVANA VILLEDA Site: [facility] Study performed: ?Lower extremity resting SHANTELLE, duplex US, (bilateral). Indication for study: Claudication, Follow-up CREATIVE RECRUITER/stent/bypass Study Quality: ?Good Other History: Bilateral SFA stents; New left leg claudication pain TECHNIQUE: Lower/upper extremity arteries were examined per exam protocol by duplex ultrasound, color-flow and spectral Doppler. Peak systolic velocities (PSV), Doppler waveform quality, velocity ratios and vessel size in cm, were documented at protocol specific sites. Physiologic data including segmental pressures, ankle/brachial index (SHANTELLE), digit PPG recordings, laser Doppler flowmetry, transcutaneous oximetry, and digit temperatures were documented at sites per exam protocol and test requirements. IMPRESSION: 1. Resting ankle-brachial index is normal on the right at 1.26 and is mildly reduced on the left at 0.86. 2. Right SFA stent is patent without stenosis. No other areas of stenosis or occlusion noted in the right leg 3. Left SFA stent in the mid to distal SFA is occluded with monophasic waveforms noted distal to the occluded stent COMPARISON: Compared to prior study 07/20/2023, Left SFA stent is now occluded, it was previously patent. the SHANTELLE is now mildly abnormal (previously 0.93 and now 0.86). No significant changes on the right. FINDINGS: Duplex imaging of the right lower extremity shows multiphasic inflow. The femoral to popliteal artery segment is patent and stented along the entire length of the superficia femoral artery without stenosis. The posterior tibial artery and posterior tibial artery are patent with multiphasic waveforms. Duplex imaging of the left lower extremity shows multiphasic inflow. The femoral to popliteal artery segment shows occlusion at mid superficial femoral artery just proximal to the stented segment. Stented segment is occluded with reconstitution seen just distal to stent in proximal popliteal artery with monophasic waveforms. The posterior tibial artery and dorsalis pedis artery are patent with monophasic waveforms. +--------+ + + RIGHT ?? Velocity cm/s Phasicity ?? +--------+ + + CATERER HELPER PRX ? 96 ? multiphasic +--------+ + + CATERER HELPER DST ? 109 ? multiphasic +--------+ + + PFA ? 144 ? multiphasic +--------+ + + SFA PRX ? 182 ? multiphasic +--------+ + + SFA MID ? 99 ? multiphasic +--------+ + + SFA DST ? 112 ? multiphasic +--------+ + + SUBHASH PRX ? 69 ? multiphasic +--------+ + + SUBHASH DST ? 65 ? multiphasic +--------+ + + CREATIVE RECRUITER DST ? 99 ? multiphasic +--------+ + + DPA ? 54 ? multiphasic +--------+ + + +--------+ + + LEFT ? Velocity cm/s Phasicity ?? +--------+ + + CATERER HELPER PRX ? 106 ? multiphasic +--------+ + + CATERER HELPER DST ? 116 ? multiphasic +--------+ + + PFA ? 159 ? multiphasic +--------+ + + SFA PRX ? 130 ? multiphasic +--------+ + + SFA MID ?0 ? occluded ?? +--------+ + + SFA DST ?0 ? occluded ?? +--------+ + + SUBHASH PRX ? 33 ? monophasic +--------+ + + SUBHASH DST ? 45 ? monophasic +--------+ + + CREATIVE RECRUITER DST ? 59 ? monophasic +--------+ + + DPA ? 39 ? monophasic +--------+ + + Criteria: Stenosis ?V. Ratio Mild ?<50% ?<2.0 Moderate ?? 50-74% ?> or = 2.0 Severe ? 75-99% ?> or = 4.0 Occluded ?100% ?? no detectable flow Pressures +-----+ +--------+ +-----+ ? RIGHT (mmHg) ? LEFT (mmHg) ? +-----+ +--------+ +-----+ Index ?125 ? Brachial ?125 ? Index +-----+ +--------+ +-----+ 1.26 ?158 ?CREATIVE RECRUITER ?108 ? 0.86 +-----+ +--------+ +-----+ 1.22 ?152 ?DPA ?100 ? 0.80 +-----+ +--------+ +-----+ STENT Stent Location Right: Full length SFA. + + + +--------+-----+ RIGHT ? Velocity cm/s Phasicity ?? Stenosis Ratio + + + +--------+-----+ PRE Stent ? 104 ? multiphasic ? + + + +--------+-----+ PRX Stent ? 182 ? multiphasic ? + + + +--------+-----+ MID Stent ? 99 ? multiphasic ? + + + +--------+-----+ DST Stent ? 112 ? multiphasic ? + + + +--------+-----+ POST Stent ? 92 ? multiphasic ? + + + +--------+-----+ Stent Location Left: Distal SFA. + + + +--------+-----+ LEFT ? Velocity cm/s Phasicity Stenosis Ratio + + + +--------+-----+ PRE Stent ?0 ? occluded ? + + + +--------+-----+ PRX Stent ?0 ? occluded ? + + + +--------+-----+ MID Stent ?0 ? occluded ? + + + +--------+-----+ DST Stent ?0 ? occluded ? + + + +--------+-----+ POST Stent ? 33 ? monophasic ? + + + +--------+-----+ Adelfo Portillo MD. Electronically signed on 10/02/2023 2:49:49 PM This study was performed and interpreted by a service accredited by the Intersocietal Accreditation Commission (IAC/Vascular), [email or web address].org/vascular Report generated by [employer]. ??Final ?? Procedure Note Adelfo Portillo MD - 10/02/2023 VASCULAR ULTRASOUND REPORT TERI PAL : 1960 Study Date: 10/02/2023 12:47:20 PM Age: 62 years Tech: [facility] Gender: M Referring MD: IVANA VILLEDA Site: [facility] Study performed: Lower extremity resting SHANTELLE, duplex US,(bilateral). Indication for study: Claudication, Follow-up CREATIVE RECRUITER/stent/bypass Study Quality: Good Other History: Bilateral SFA stents; New left leg claudication pain TECHNIQUE: Lower/upper extremity arteries were examined per exam protocol by duplexultrasound, color-flow and spectral Doppler. Peak systolic velocities(PSV), Doppler waveform quality, velocity ratios and vessel size in cm,were documented at protocol specific sites. Physiologic data includingsegmental pressures, ankle/brachial index (SHANTELLE), digit PPG recordings,laser Doppler flowmetry, transcutaneous oximetry, and digit temperatureswere documented at sites per exam protocol and test requirements. IMPRESSION: 1. Resting ankle-brachial index is normal on the right at 1.26 and ismildly reduced on the left at 0.86. 2. Right SFA stent is patent without stenosis. No other areas of stenosisor occlusion noted in the right leg 3. Left SFA stent in the mid to distal SFA is occluded with monophasicwaveforms noted distal to the occluded stent COMPARISON: Compared to prior study 07/20/2023, Left SFA stent is now occluded, it waspreviously patent. the SHANTELLE is now mildly abnormal (previously 0.93 and now0.86). No significant changes on the right. FINDINGS: Duplex imaging of the right lower extremity shows multiphasic inflow. Thefemoral to popliteal artery segment is patent and stented along the entirelength of the superficia femoral artery without stenosis. The posteriortibial artery and posterior tibial artery are patent with multiphasicwaveforms. Duplex imaging of the left lower extremity shows multiphasicinflow. The femoral to popliteal artery segment shows occlusion at midsuperficial femoral artery just proximal to the stented segment. Stentedsegment is occluded with reconstitution seen just distal to stent inproximal popliteal artery with monophasic waveforms. The posterior tibialartery and dorsalis pedis artery are patent with monophasic waveforms. +--------+ + + RIGHT Velocity cm/s Phasicity +--------+ + + CATERER HELPER PRX 96 multiphasic +--------+ + + CATERER HELPER DST 109 multiphasic +--------+ + + PFA 144 multiphasic +--------+ + + SFA PRX 182 multiphasic +--------+ + + SFA MID 99 multiphasic +--------+ + + SFA DST 112 multiphasic +--------+ + + SUBHASH PRX 69 multiphasic +--------+ + + SUBHASH DST 65 multiphasic +--------+ + + CREATIVE RECRUITER DST 99 multiphasic +--------+ + + DPA 54 multiphasic +--------+ + + +--------+ + + LEFT Velocity cm/s Phasicity +--------+ + + CATERER HELPER PRX 106 multiphasic +--------+ + + CATERER HELPER DST 116 multiphasic +--------+ + + PFA 159 multiphasic +--------+ + + SFA PRX 130 multiphasic +--------+ + + SFA MID 0 occluded +--------+ + + SFA DST 0 occluded +--------+ + + SUBHASH PRX 33 monophasic +--------+ + + SUBHASH DST 45 monophasic +--------+ + + CREATIVE RECRUITER DST 59 monophasic +--------+ + + DPA 39 monophasic +--------+ + + Criteria: Stenosis V. Ratio Mild <50% <2.0 Moderate 50-74% > or = 2.0 Severe 75-99% > or = 4.0 Occluded 100% no detectable flow Pressures +-----+ +--------+ +-----+ RIGHT (mmHg) LEFT (mmHg) +-----+ +--------+ +-----+ Index 125 Brachial 125 Index +-----+ +--------+ +-----+ 1.26 158 CREATIVE RECRUITER 108 0.86 +-----+ +--------+ +-----+ 1.22 152 DPA 100 0.80 +-----+ +--------+ +-----+ STENT Stent Location Right: Full length SFA. + + + +--------+-----+ RIGHT Velocity cm/s Phasicity Stenosis Ratio + + + +--------+-----+ PRE Stent 104 multiphasic + + + +--------+-----+ PRX Stent 182 multiphasic + + + +--------+-----+ MID Stent 99 multiphasic + + + +--------+-----+ DST Stent 112 multiphasic + + + +--------+-----+ POST Stent 92 multiphasic + + + +--------+-----+ Stent Location Left: Distal SFA. + + + +--------+-----+ LEFT Velocity cm/s Phasicity Stenosis Ratio + + + +--------+-----+ PRE Stent 0 occluded + + + +--------+-----+ PRX Stent 0 occluded + + + +--------+-----+ MID Stent 0 occluded + + + +--------+-----+ DST Stent 0 occluded + + + +--------+-----+ POST Stent 33 monophasic + + + +--------+-----+ Adelfo Portillo MD. Electronically signed on 10/02/2023 2:49:49 PM This study was performed and interpreted by a service accredited by theIntersocietal Accreditation Commission (IAC/Vascular),[email or web address]/vascular Report generated by [employer]. Final Ivana Mane Villeda MD US * (ABNORMAL) LIPID PANEL (04/24/2023 9:01 AM PHARMACIST TECHNICIAN) CHOLESTEROL,TOTAL 107 100 - 199 mg/dL 04/24/2023 12:43 PM PHARMACIST TECHNICIAN [facility] Comment: Cholesterol, Total Reference Ranges Desirable <200 mg/dL Borderline 200-239 mg/dL High >=240 mg/dL TRIGLYCERIDES 128 <150 mg/dL 04/24/2023 12:43 PM PHARMACIST TECHNICIAN [facility] HDL CHOLESTEROL 35(L) >40 mg/dL 12:43 PM PHARMACIST TECHNICIAN [facility] NON-HDL CHOLESTEROL 72 <145 mg/dl 04/24/2023 12:43 PM [facility] CHOL/HDL RATIO 3.06 <4.50 04/24/2023 12:43 PM [facility] LDL CHOLESTEROL 46 <=130 mg/dL 04/24/2023 12:43 PM [facility] VLDL CHOLESTEROL 26 <=30 mg/dL 04/24/20 12:43 PM PHARMACIST TECHNICIAN [facility] Blood BLOOD SPECIMEN / Unknown Non-Lab Venipuncture / Unknown 04/24/2023 9:01 AM PHARMACIST TECHNICIAN 04/24/2023 9:05 AM PHARMACIST TECHNICIAN Destiny Waters PHARMACIST ASSISTANT CHEMISTRY [facility] [address] [place] [address], from Last 3 Months or Most Recently Relevant to Health Maintenance Advance Directives * Full Code (Latest Code Status on File) Date Activated Date Inactivated Comments 10/08/2023 11:44 AM 10/08/2023 5:26 PM Question Answer Comments Code Status Discussion: Reviewed Preferences * Full Code Date Activated Date Inactivated Comments 07/23/2022 3:28 PM 07/25/2022 6:10 PM Question Answer Comments Code Status Discussion: Reviewed Preferences * Full Code Date Activated Date Inactivated Comments 07/23/2022 3:22 AM 07/23/2022 3:28 PM Question Answer Comments Code Status Discussion: Unable to Assess Preferences, Provider to review later * Full Code Date Activated Date Inactivated Comments 07/23/2022 3:22 AM 07/23/2022 3:22 AM Question Answer Comments Code Status Discussion: Unable to Assess Preferences, Provider to review later Care Teams Elementary Reading Tutor Relationship Specialty Start Date End Date Domi Thomas MD [address] [place] [address] PCP - General 11/20/22
--- OUTSIDE RECORDS SUMMARY | 2023-10-30 20:20 | XMS_ITS | Referral Summary ---
Author Name Unknown Organization [facility] Address [address] [place] [address] Care Team Providers Care Compilation Clerk Name Role Phone Unavailable Primary Care Provider Unavailabl e Allergies Active Allergy Reactions Criticality Noted Date Comments Penicillins Other (See Comments) 04/06/2003 Medications Medication Sig Dispensed Refills Start Date End Date Status amLODIPine (NORVASC) 2.5 MG tablet Take 2.5 mg by mouth daily 08/29/2022 03/31/2023 Discontinued( Patient Discharge) buPROPion (WELLBUTRIN XL) 150 MG 24 hr tablet Take 150 mg by mouth every morning 03/31/2023 Discontinued( Patient Discharge) carvedilol (COREG) 25 MG tablet Take 25 mg by mouth 2 times daily (with meals) 03/31/2023 Discontinued( Patient Discharge) losartan (COZAAR) 50 MG tablet Take 1 tablet by mouth daily 07/24/2022 03/31/2023 Discontinued( Patient Discharge) nitroGLYcerin (NITROSTAT) 0.[address] tablet [address] 0.4 mg under the tongue every 5 minutes as needed 07/24/2022 03/31/2023 Discontinued( Patient Discharge) rosuvastatin (CRESTOR) 20 MG tablet Take 20 mg by mouth at bedtime 03/31/2023 Discontinued( Patient Discharge) ticagrelor (BRILINTA) 90 MG tablet Take 90 mg by mouth 2 times daily 07/24/2022 03/31/2023 Discontinued( Patient Discharge) Active Problems Problem Noted Date Diagnosed Date Impotence of organic origin 08/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 Mixed hyperlipidemia 04/06/2003 Tobacco use disorder 04/06/2003 Social History Tobacco Use Types Packs/Day Years Used Date Smoking Tobacco: Former Cigarettes 1 20 0 07/2002 - 07/2022 Smokeless Tobacco: Never Alcohol Use Standard Drinks/Week Comments Yes 0 (1 standard drink = 0.6 oz pur e alcohol) once a week Adolescent Education Answer Date Record ed Getting School Help Needed Not on file 03/12 Sex and Gender Information Value Date Recorded Sex Assigned at Not on file Gender Identity Not on file Sexual Orientation Not on file Last Filed Vital Signs Vital Sign Reading Time Taken Comments Blood Pressure 114/72 08/11/2003 10:00 AM MANAGER SOCIAL MEDIA Pulse 76 04/06/2003 12:45 PM CDT Temperature 36 ??C (96.8 ??F) 08/11/2003 10:00 AM MANAGER SOCIAL MEDIA Respiratory Rate - - Oxygen Saturation - - Inhaled Oxygen Concentration - - Weight 97.1 kg (214 lb) 03/30/2023 3:00 PM CDT Height 177.8 cm (5' 10) 03/30/2023 3:00 PM CDT Body Mass Index 30.71 03/30/2023 3:00 PM CDT Plan of Treatment Not on file
--- OUTSIDE RECORDS SUMMARY | 2023-10-30 20:20 | XMS_ITS | Clinical Summary ---
Author Name Unknown Organization [facility] Address [address] [place] [address] Care Team Providers Care Mental Health Assistant Name Role Phone Unavailable Primary Care Provider [...] Mixed hyperlipidemia 04/06/2003 Tobacco use disorder 04/06/2003 Family History Medical History Relation Comments Circulatory Maternal Grandfather brain anuer ysm C.A.D. No family hx of Diabetes No family hx of Relation Status Comments Maternal Grandfather Social History Tobacco Use Types Packs/Day Years [...] Comments Blood Pressure 114/72 08/11/2003 10:00 AM RN PSYCHIATRIC Pulse 76 04/06/2003 12:45 PM CDT Temperature 36 ??C (96.8 ??F) 08/11/2003 10:00 AM RN PSYCHIATRIC Respiratory Rate - - Oxygen Saturation - - Inhaled Oxygen Concentration - - Weight 97.1 kg (214 lb) 03/30/2023 3:00 PM CDT Height 177.8 cm (5' 10) 03/30/2023 3:00 PM CDT Body Mass Index 30.71 03/30/2023 3:00 PM CDT Plan of Treatment Health Maintenance Due Date Last Done Comments ADVANCE CARE PLANNING 1960 ANNUAL REVIEW OF HM ORDERS 1961 CT COLONOGRAPHY 1961 FIT 1961 FLEX SIG 1961 GLUCOSE 1961 LIPID 1961 YEARLY PREVENTIVE VISIT 1961 sDNA (Cologuard) 1961 COLONOSCOPY 12/03/1971 COLORECTAL CANCER SCREENING 12/03/1971 HIV SCREENING 1976 HEPATITIS C SCREENING 12/03/1979 LUNG CANCER SCREENING 12/03/2011 RSV VACCINE ( & 60+) (1 - 1-dose 60+ series) 2021 DTAP/TDAP/TD IMMUNIZATION (1 - Tdap) 10/31/2022 10/30/2022, 10/21/2004 ZOSTER IMMUNIZATION (2 of 2) 12/25/2022 10/30/2022 COVID-19 Vaccine (5 - 2022-24 season) 2023 04/10/2022, 07/03/2021, 09/22/2020, Additional history exists PHQ-2 (once per calendar year) 2023 INFLUENZA VACCINE (Season Ended) 2024 HPV IMMUNIZATION Aged Out No longer e ligible based on patient's age to complete this topic IPV IMMUNIZATION Aged Out No longer e ligible based on patient's age to complete this topic MENINGITIS IMMUNIZATION Aged Out No l onger eligible based on patient's age to complete this topic Pneumococcal Vaccine: Pediatrics (0 to 5 Years) and At-Risk Patients (6 to 64 Years) Aged Out No longer eligible based on patient's age to complete this topic RSV MONOCLONAL ANTIBODY Aged Out No l onger eligible based on patient's age to complete this topic Vernon Young Personal/Family Self [address] [place] [address]
--- OUTSIDE RECORDS SUMMARY | 2023-10-30 20:20 | XMS_ITS | Encounter Summary ---
Author Name Unknown Organization [facility] Address [address] [place] [address] Care Team Providers Care Supervisor Scrap Preparation Name Role Phone Justa Armenta MD Primary Care Provider [phone] López Del Rio MD Primary Care Provide r Leena Nazario EP Unavailable [phone] Domi Thomas MD Primary Care Provider [phone] Reason for Visit * Reason Onset Date Comments Forms 06/24/2004 request for [facility] records mailed 06/24/04 Encounter Details Date Type Department Care Team (Late st Contact Info) Description 06/24/2004 Telephone [facility] [address] [place] [address] Abstract, Provider Forms (request for medical records mailed 06/24/04) Social History Tobacco Use Types Packs/Day Years Used Date Smoking Tobacco: Every Day Cigarettes 1 20 Alcohol Use Standard Drinks/Week Comments Yes 0 (1 standard drink = 0.6 oz pur e alcohol) once a week Sex and Gender Information Value Date Recorded Sex Assigned at Not on file Gender Identity Not on file Sexual Orientation Not on file documented as of this encounter Miscellaneous Notes * Telephone Encounter - 06/24/2004 11:28 AM CSTEncounter initiated. ASSEMBLER documented in this encounter Plan of Treatment Not on file documented as of this encounter Visit Diagnoses Not on filedocumented in this encounter Care Teams Supervisor Scrap Preparation Relationship Specialty Start Date End Date Justa Armenta MD [address] [facility] [address] [address] PCP - General 04/06/03 07/08/12 López Del Rio MD [address], [id number] [place] [address] PCP - General Family Practice 07/09/12 03/17/23 Domi Thomas MD [address] [id number] PCP - General Family Medicine 03/18/23 07/14/23 Leena Nazario EP [facility] [address] [address] Cardiac Rehabilitation Therapist 09/09/22 09/10/23 documented as of this encounter
--- NOTE | 2023-11-24 12:11 | W.PM.SLEEP ---
Sleep Study Details Details Interpreting Provider: Agata Date of Sleep Study: 10/30/23 Sleep Study Details: STUDY TYPE:? Hospital-based attended ? BMI:? 31.6 ORDERING PROVIDER:Abel Thomas INDICATION:? Concerns about sleep apnea ? SLEEP SUMMARY:? 403 minutes total sleep time RESPIRATORY SUMMARY:? Mean oxygen awake 96 asleep 96 minimum 90 AHI 10.7. REM AHI 2.7. The entire diagnostic portion of the study was done in the supine position PERIODIC LIMB MOVEMENTS OF SLEEP:? None CARDIAC:? Awake 62 asleep 58. No arrhythmias noted IMPRESSION:? Mild obstructive sleep apnea RECOMMENDATION: If patient is symptomatic treatment options could include CPAP or dental appliance.
== END 2023-10-30 20:17 | disposition home or self-care (01) ==
LOC: SLEEP 20:18
PROVIDERS: PCP Family Medicine; Visit Provider Family Medicine
DX: G47.33 Obstructive sleep apnea (adult) (pediatric) (principal)
CPT/HCPCS: 95810

== ENCOUNTER 2023-12-14 10:26 | Outpatient (CLI) | payer BC, SELFPAY | END 2023-12-14 10:27 | disposition home or self-care (01) | PROVIDERS: PCP Family Medicine; Visit Provider Family Medicine | DX: E78.5 Hyperlipidemia, unspecified (principal); I10 Essential (primary) hypertension; Z79.01 Long term (current) use of anticoagulants; Z12.5 Encounter for screening for malignant neoplasm of prostate; Z11.59 Encounter for screening for other viral diseases; Z13.0 Encounter for screening for diseases of the blood and blood-forming organs and certain disorders involving the immune mechanism | CPT/HCPCS: 80053; 80061; 82043; 82570; 82728; 86803; G0103 ==

== ENCOUNTER 2024-01-07 15:49 | Outpatient (CLI) | payer BC, SELFPAY ==
--- OUTSIDE RECORDS SUMMARY | 2024-01-07 15:52 | XMS_ITS | Encounter Summary ---
Author Organization [facility] Address [address] [place] [address] Care Team Providers Care Ux Lead Name Role Phone Justa Armenta MD Primary Care Provider [phone] López Del Rio MD Primary Care Provide r Leena Nazario EP Unavailable [phone] Domi Thomas MD Primary Care Provider [phone] Reason for Visit * Reason Onset Date Comments Forms 06/24/2004 [facility] records mailed 06/24/04 Encounter Details Date Type Department Care Team (Late st Contact Info) Description 06/24/2004 Telephone [facility] [address] [place] [address] Abstract, Provider Forms (request for [...] Encounter - 06/24/2004 11:28 AM CSTEncounter initiated. LE CUTTER documented in this encounter Plan of Treatment Not on file documented as of this encounter Visit Diagnoses Not on filedocumented in this encounter Care Teams Ux Lead Relationship Specialty Start Date End Date Justa Armenta MD [address] [facility] [address] [address] PCP - General 04/06/03 07/08/12 López Del Rio MD [address], [id number] [place] [address] PCP - General Family Practice 07/09/12 03/17/23 Domi Thomas MD [address] [id number] PCP - General Family Medicine 03/18/23 07/14/23 Leena Nazario EP [facility] [address] [id number] Cardiac Rehabilitation Therapist 09/09/22 09/10/23 documented as of this encounter
--- OUTSIDE RECORDS SUMMARY | 2024-01-07 15:52 | XMS_ITS | Referral Summary ---
Author Organization [facility] Address [address] [place] [address] Care Team Providers Care Ribbon Blocker Name Role Phone Unavailable Primary Care Provider [...] Comments Blood Pressure 114/72 08/11/2003 10:00 AM BUCKET PUSHER Pulse 76 04/06/2003 12:45 PM CDT Temperature 36 ??C (96.8 ??F) 08/11/2003 10:00 AM BUCKET PUSHER Respiratory Rate - - Oxygen Saturation - - Inhaled Oxygen Concentration - - Weight 97.1 kg (214 lb) 03/30/2023 3:00 PM CDT Height 177.8 cm (5' 10) 03/30/2023 3:00 PM CDT Body Mass Index 30.71 03/30/2023 3:00 PM CDT Plan of Treatment Not on file
--- OUTSIDE RECORDS SUMMARY | 2024-01-07 15:52 | XMS_ITS | Clinical Summary ---
Author Organization [employer] [facility] Address [place], [place] [address] Care Team Providers Care Knotting Machine Operator Name Role Phone Domi Thomas MD Primary Care Provider [phone] Allergies Active Allergy Reactions Criticality Noted Date Comments Penicillins *Unknown - Childhood Rxn 07/23/2022 Medications Medication Sig Dispensed Refills Start Date End Date Status nitroglycerin (NITROSTAT) 0.4 mg sublingual tabletIndications:NS ZACHARY (non-ST elevated myocardial infarction) (HC),ASCVD (arteriosclerotic cardiovascular disease),Mixed hyperlipidemia Place 1 Tablet (0.4 mg) under the tongue every 5 minutes if needed for Chest Pain. 9 Tablet 2 07/24/2022 Active rosuvastatin (CRESTOR) 20 mg tabletIndications:NS ZACHARY (non-ST elevated myocardial infarction) (HC),ASCVD (arteriosclerotic cardiovascular disease),Mixed hyperlipidemia Take 1 Tablet (20 mg) by mouth at bedtime. 90 Tablet 07/24/2022 Active ticagrelor (BRILINTA) 90 mg tabletIndications:NS ZACHARY (non-ST elevated myocardial infarction) (HC),ASCVD (arteriosclerotic cardiovascular disease),S/P drug eluting coronary stent placement Take 1 Tablet (90 mg) by mouth two times daily for 1 year 90 Tablet 3 07/24/2022 Active losartan (COZAAR) 50 mg tabletIndications:HT N (hypertension) Take 1 Tablet (50 mg) by mouth once daily. 90 Tablet 3 07/24/2022 Active carvediloL (COREG) 25 mg tabletIndications:NS ZACHARY (non-ST elevated myocardial infarction) (HC),ASCVD (arteriosclerotic cardiovascular disease),Mixed hyperlipidemia,S/P drug eluting coronary stent placement,Smoking,HT N (hypertension) Take 1 Tablet (25 mg) by mouth two times daily with meals. 60 Tablet 2 07/25/2022 Active amLODIPine (NORVASC) 2.5 mg tabletIndications:NS ZACHARY (non-ST elevated myocardial infarction) (HC),ASCVD (arteriosclerotic cardiovascular disease),Smoking,Mod erate mixed hyperlipidemia not requiring statin therapy,HTN (hypertension) Take 2.5 mg by mouth once daily. 08/29/2022 Active famotidine (PEPCID) 20 mg tablet Take 20 mg by mouth two times daily. Active buPROPion (Wellbutrin XL) 300 mg Extended-Release tablet Take 300 mg by mouth once daily. Active rivaroxaban (Xarelto) 20 mg tabletIndications:PA D (peripheral artery disease) (HC) Take 1 Tablet (20 mg) by mouth once daily with evening meal. 30 Tablet 3 10/08/2023 Active oxyCODONE-acetaminop hen (PERCOCET) 5-325 mg per tabletIndications:PA D (peripheral artery disease) (HC),S/P angiogram of extremity Take 1 Tablet by mouth every 6 hours if needed for Pain. Max acetaminophen dose: 4000mg in 24 hrs. 5 Tablet 10/08/2023 Active Active Problems Problem Noted Date Diagnosed Date PAD (peripheral artery disease) 11/20/2022 NSTEMI (non-ST elevated myocardial infarction) 0 07/23/2022 HLD (hyperlipidemia) 07/23/2022 Smoking 07/23/2022 Encounters Date Type Department Care Team Description 10/08/2023 8:02 AM CDT - 10/08/2023 3:25 PM CDT Hospital Encounter [facility] [address] [place] [address] Jerry Villeda MD PAD (peripheral artery disease) (HC) (Primary Dx); S/P angiogram of extremity Discharge Disposition: Home Self Care 10/08/2023 Travel from Last 3 Months Social History [...] T Respiratory Rate 18 07/02/2023 3:07 PM CORPORATE DIRECTOR OF HUMAN RESOURCES Oxygen Saturation 99% 10/08/2023 3:00 PM CDT Inhaled Oxygen Concentration - - Weight 98.9 kg (218 lb) 10/08/2023 8:24 AM CDT Height 177.8 cm (5' 10) 10/08/2023 8:24 AM CDT Body Mass Index 31.28 10/08/2023 8:24 AM CDT Plan of Treatment Upcoming Encounters Date Type Department Care Team (Late st Contact Info) Description 01/14/2024 9:00 AM CDT Office Visit [facility] [address] [place] [address] Jagdeep Azul MD [address] [place] [address] Health Maintenance Due Date Last Done Comments Tdap 1972 Depression screening for age 12+ 1973 HIV for age 15-65 1976 Hepatitis C screening for age 18-79 12/03/1979 Tetanus booster 1981 Colonoscopy through age 75 2006 Zoster (shingles) series for age 50+ (1 of 2) 12/03/2011 COVID-19 vaccine series ( season) 2023 04/10/2022, 07/03/2021, 09/22/2020, Additional history exists BMI (ht and wt on same day) for age 18+ 01/02/2024 01/01/2023 Influenza for age 50-64 02/14/2024 Lipids for age 45-75 04/24/2028 04/24/2023, 07/23/19 23 Pneumococcal series for age 6-64 Aged Out No longer eligible based on patient's age to complete this topic Procedures Procedure Name Priority Date/Time Associated Diagnosis Comments PV ABDOMINAL/LOWER EXTREMITY ANGIOGRAPHY Routine 10/08/2023 2:50 PM CDT [facility] ACTIVATED CLOTTING TM CV Timed 10/08/2023 10:52 AM CDT CBC W PLT NO DIFF Preop 10/08/2023 8:3 4 AM CDT BASIC METABOLIC PANEL Preop 10/08/2023 8:34 AM CDT SCAN-OPERATIVE/PROCE DURE REPORT 10/08/2023 12:00 AM CDT LIPID PANEL MOIRA 04/24/2023 9:01 AM CORPORATE DIRECTOR OF HUMAN RESOURCES from Last 3 Months or Most Recently Relevant to Health Maintenance Results * PV ABDOMINAL/LOWER EXTREMITY ANGIOGRAPHY (10/08/2023 2:50 PM CDT) Anatomical Region Laterality Modality X-Ray Angiograph y Narrative 10/08/2023 2:50 PM CDT Jerry Villeda MD ? 10/08/2023 ??2:59 PM OPERATIVE REPORT SURGEON Jerry Villeda MD PRINCIPAL JAVA DEVELOPER Maribel Rogers MD (Fellow) ANESTHESIA Moderate sedation/local [...] x 15 mm stent. INDICATIONS FOR PROCEDURE Vernon M Hector is a ??62 y.o. with severe PAD [...] proceed. OPERATIVE FINDINGS Ultrasound examination of right APPLICATION PACKAGING CONSULTANT revealed a patent vessel adequate for access. Access was more difficult than usual due to scarring from prior angiograms. Diagnostic angiogram of aorta and iliacs demonstrated patent aorta, renals, iliacs, APPLICATION PACKAGING CONSULTANT and PFA. The proximal SFA was patent with mild disease and no flow limitation. In the distal portion about 3 centimeters proxima to stent edge, there was an occlusion of [place] vessel which extended to the distal stent. [...] tip or sheath was advanced to the AIRPLANE ELECTRICAL REPAIRER. Arteriography was performed with the findings as [...] ROOM Stable. CONSCIOUS SEDATION I provided direct [id number] monitoring of conscious sedation during lower extremity angiogram with intervention which was administered by an independent trained nurse using intravenous Fentanyl 300 mcg/Versed 5.5 mg for 87 minutes. PRESENCE STATEMENT I was present for the entire operation. NEWS CORRESPONDENT MEASURES We utilized approximately 20 cc of Optiray contrast and fluoroscopy time was 14.4 minutes (152 mGy). Jerry Vilelda MD CV IMAGING * (ABNORMAL) ACTIVATED CLOTTING TIME [id number] ACT (10/08/2023 10:52 AM CDT) [facility] ACTIVATED CLOTTING TIME, POCT 329(H) 74 - 125 sec 10/09/2023 11:10 AM CDT [facility] Blood BLOOD SPECIMEN / Unknown 10/08/2023 10:52 AM CDT 10/09/2023 11:10 AM CDT Jerry Villeda MD HEMATOLOGY [facility] [address] [place] [address], * CBC with Platelets no Differential (10/08/2023 8:34 AM CDT) [facility] WHITE BLOOD COUNT 7.7 4.5 - 11.0 thou/cu mm 10/08/2023 8:48 AM CDT [facility] RED BLOOD COUNT 4.67 4.30 - 5.90 mil/cu mm 10/08/2023 8:48 AM CDT [facility] HEMOGLOBIN 13.5 13.5 - 17.5 g/dL 10/08/2023 8:48 AM CDT [facility] HEMATOCRIT 40.0 37.0 - 53.0 % 10/08/2023 8:48 AM CDT [facility] MCV 86 80 - 100 fL 10/08/2023 8:48 AM CDT [facility] MCH 28.9 26.0 - 34.0 pg 10/08/2023 8:48 AM CDT [facility] MCHC 33.8 32.0 - 36.0 g/dL 10/08/2023 8:48 AM CDT [facility] RDW 13.2 11.5 - 15.5 % 10/08/2023 8:48 AM CDT [facility] PLATELET COUNT 272 140 - 440 thou/cu mm 10/08/2023 8:48 AM CDT [facility] MPV 9.6 6.5 - 11.0 fL 10/08/2023 8:48 AM CDT [facility] NRBC 0.0 % 10/08/2023 8:48 AM CDT [facility] ABS NRBC 0.0 thou /cu mm 10/08/2023 8:48 AM CDT [facility] Blood BLOOD SPECIMEN / Unknown Non-Lab Venipuncture / Unknown 10/08/2023 8:34 AM CDT 10/08/2023 8:44 AM CDT Elizabeth DEL VALLE HEMATOLOGY [facility] [address] [place] [address], * (ABNORMAL) Basic Metabolic Panel (10/08/2023 8:34 AM CDT) SODIUM 140 136 - 145 mmol/L 10/08/2023 9:21 AM CDT [facility] POTASSIUM 4.6 3.5 - 5.1 mmol/L 10/08/2023 9:21 AM CDT [facility] CHLORIDE 107 98 - 107 mmol/L 10/08/2023 9:21 AM CDT [facility] CO2,TOTAL 23 22 - 29 mmol/L 10/08/2023 9:21 AM CDT [facility] ANION GAP 10 5 - 18 10/08/2023 9:21 AM CDT [facility] GLUCOSE 109(H) 70 - 99 mg/dL 10/08/2023 9:21 AM CDT [facility] CALCIUM 9.4 8.8 - 10.2 mg/dL 10/08/2023 9:21 AM CDT [facility] BUN 22 8 - 23 mg/dL 10/08/2023 9:21 AM CDT [facility] CREATININE 1.32(H) 0.70 - 1.20 mg/dL 10/08/2023 9:21 AM T [facility] BUN/CREAT RATIO 17 10 - 20 9:21 AM T [facility] eGFR 61(L) >90 mL/min/1.7 3m2 10/08/2023 9:21 AM T [facility] Comment:As of 2021, eG FR [...] 8:44 AM CDT Elizabeth DEL VALLE [facility] [address] [place] [address], * SCAN-OPERATIVE/PROCEDURE REPORT (10/08/2023 12:00 AM CDT) Narrative 10/08/2023 12:00 AM CDT Ordered by an unspecified provider. Other Clinical Staff OTHER * (ABNORMAL) LIPID PANEL (04/24/2023 9:01 AM CORPORATE DIRECTOR OF HUMAN RESOURCES) CHOLESTEROL,TOTAL 107 100 - 199 mg/dL 04/24/2023 12:43 PM CORPORATE DIRECTOR OF HUMAN RESOURCES [facility] Comment: Cholesterol, Total Reference Ranges Desirable <200 mg/dL Borderline 200-239 mg/dL High >=240 mg/dL TRIGLYCERIDES 128 <150 mg/dL 04/24/2023 12:43 PM CORPORATE DIRECTOR OF HUMAN RESOURCES [facility] HDL CHOLESTEROL 35(L) >40 mg/dL 12:43 PM CORPORATE DIRECTOR OF HUMAN RESOURCES [facility] NON-HDL CHOLESTEROL 72 <145 mg/dl 04/24/2023 12:43 PM CORPORATE DIRECTOR OF HUMAN RESOURCES [facility] CHOL/HDL RATIO 3.06 <4.50 04/24/2023 12:43 PM CORPORATE DIRECTOR OF HUMAN RESOURCES [facility] LDL CHOLESTEROL 46 <=130 mg/dL 04/24/2023 12:43 PM CORPORATE DIRECTOR OF HUMAN RESOURCES [facility] VLDL CHOLESTEROL 26 <=30 mg/dL 04/24/20 12:43 PM [facility] Blood BLOOD SPECIMEN / Unknown Non-Lab Venipuncture / Unknown 04/24/2023 9:01 AM CORPORATE DIRECTOR OF HUMAN RESOURCES 04/24/2023 9:05 AM CORPORATE DIRECTOR OF HUMAN RESOURCES Destiny Waters NP CHEMISTRY [facility] [address] [place] [address], from Last 3 Months or Most Recently [...] Preferences, Provider to review later Care Teams Knotting Machine Operator Relationship Specialty Start Date End Date Domi Thomas MD [address] [place] [address] PCP - General 11/20/22
--- OUTSIDE RECORDS SUMMARY | 2024-01-07 15:52 | XMS_ITS | Clinical Summary ---
Author Organization [place] Address [address] [place] [id number] Care Team Providers Care Speeder Operator Name Role Phone Unavailable Primary Care Provider [...] Comments Blood Pressure 114/72 08/11/2003 10:00 AM BRIGADIER Pulse 76 04/06/2003 12:45 PM CDT Temperature 36 ??C (96.8 ??F) 08/11/2003 10:00 AM BRIGADIER Respiratory Rate - - Oxygen Saturation - [...] 2) 12/25/2022 10/30/2022 COVID-19 Vaccine (5 - 2022- season) 2023 04/10/2022, 07/03/2021, 09/22/2020, Additional history exists PHQ-2 (once per calendar year) 2023 INFLUENZA VACCINE (#1) 2024 HPV IMMUNIZATION Aged Out No longer [...] this topic Vernon Young Personal/Family Self [address] [place] [address]
--- NOTE | 2024-01-07 16:00 | CRLHL7_ITS ---
For Patients: As a result of the Century Cures Act, medical imaging exams and procedure reports are released immediately into your electronic medical record. You may view this report before your referring provider. If you have questions, please contact your health care provider. INDICATION: Lung cancer screening. History of smoking. High risk patient with greater than 30 pack-year smoking history. TECHNIQUE: Low-dose lung cancer screening non-contrast CT chest. Dose reduction techniques were used. COMPARISON: 01/05/2023, 11/11/2022 FINDINGS: NODULES: Unchanged ground-glass nodular density within the right upper lobe measuring approximately 8 millimeters. Similar small ground-glass nodule within the superior segment of the left lower lobe is also unchanged measuring 5 millimeters. There are scattered bilateral nodules measuring 4 millimeters or less, unchanged, several of which are subpleural/irineo fissural. LUNGS AND PLEURA: Emphysema. MEDIASTINUM: Decreased size of mediastinal and bilateral hilar lymph nodes. Lymph nodes now measure up to 1.4 cm in transverse dimension, previously measuring up to 1.8 cm. The thyroid gland appears similar. CORONARY ARTERY CALCIFICATION: Present. LIMITED UPPER ABDOMEN: Incidental splenule is present. Adrenal glands normal. Normal gallbladder and visualized pancreas. MUSCULOSKELETAL: Discogenic spurring with bridging osteophytes. IMPRESSION: Stable bilateral solid and ground-glass nodules bilaterally. LUNG-RADS CATEGORY: 2: Benign. RADIOLOGIST RECOMMENDATION: Continue annual screening with low-dose CT chest in 12 months. Please note that all CT scans at this facility use dose modulation, iterative reconstruction, and/or weight-based dosing when appropriate to reduce radiation dose to as low as reasonably achievable. Dictated by Anil Barth MD @ 01/08/2024 2:55:15 PM (Electronically Signed)
== END 2024-01-07 15:50 | disposition home or self-care (01) ==
LOC: CT 15:51
PROVIDERS: PCP Family Medicine; Visit Provider Family Medicine
DX: Z12.2 Encounter for screening for malignant neoplasm of respiratory organs (principal); R91.8 Other nonspecific abnormal finding of lung field; Z87.891 Personal history of nicotine dependence
CPT/HCPCS: 71271

== ENCOUNTER 2024-05-25 15:15 | Outpatient (RCR) | payer BC, SELFPAY | END 2024-09-22 23:59 | disposition home or self-care (01) | PROVIDERS: PCP Family Medicine; Visit Provider Family Medicine | DX: M25.551 Pain in right hip (principal); M25.552 Pain in left hip; I73.9 Peripheral vascular disease, unspecified; Z51.89 Encounter for other specified aftercare | CPT/HCPCS: 97110; 97162 ==

== ENCOUNTER 2025-01-03 12:54 | Outpatient (CLI) | payer BC, SELFPAY | END 2025-01-03 12:55 | disposition home or self-care (01) | LOC: NFLDREF 01-05 02:32 | PROVIDERS: PCP Family Medicine; Referring Provider Family Medicine; Visit Provider Family Medicine | DX: I21.4 Non-ST elevation (NSTEMI) myocardial infarction (principal); I10 Essential (primary) hypertension; F39 Unspecified mood [affective] disorder; I25.2 Old myocardial infarction; E78.5 Hyperlipidemia, unspecified; R73.03 Prediabetes; Z12.5 Encounter for screening for malignant neoplasm of prostate | CPT/HCPCS: 80053; 80061; 82043; 82570; 84443; G0103 ==

== ENCOUNTER 2025-01-16 14:38 | Outpatient (CLI) | payer BC, SELFPAY ==
--- NOTE | 2025-01-16 15:00 | CRLHL7_ITS ---
For Patients: As a result of the Century Cures Act, medical imaging exams and procedure reports are released immediately into your electronic medical record. You may view this report before your referring provider. If you have questions, please contact your health care provider. INDICATION: Lung cancer screening. History of smoking. High risk patient with greater than 35 pack-year smoking history. TECHNIQUE: Low-dose lung cancer screening non-contrast CT chest. Dose reduction techniques were used. COMPARISON: 01/07/2024 FINDINGS: NODULES: Decreased conspicuity of ground-glass nodules within the right upper lobe. Stable subpleural nodule within the left upper lobe, . Small calcified nodules are present bilaterally. Stable perifissural nodule on the right. Stable nodule left lower lobe, . LUNGS AND PLEURA: Dependent atelectasis/scarring in both lung bases. MEDIASTINUM: Decreased size of mediastinal lymph nodes. Atherosclerotic changes. CORONARY ARTERY CALCIFICATION: Severe. LIMITED UPPER ABDOMEN: Incidental splenule. MUSCULOSKELETAL: No fracture. IMPRESSION: Negative for lung cancer screening purposes. LUNG-RADS CATEGORY: 2: Benign. RADIOLOGIST RECOMMENDATION: Continue annual screening, if eligible, with low-dose CT chest in 12 months. Please note that all CT scans at this facility use dose modulation, iterative reconstruction, and/or weight-based dosing when appropriate to reduce radiation dose to as low as reasonably achievable. Dictated by Anil Barth MD @ 01/17/2025 10:55:51 AM (Electronically Signed)
== END 2025-01-16 14:39 | disposition home or self-care (01) ==
LOC: CT 14:39
PROVIDERS: PCP Family Medicine; Visit Provider Family Medicine
DX: Z12.2 Encounter for screening for malignant neoplasm of respiratory organs (principal); Z87.891 Personal history of nicotine dependence
CPT/HCPCS: 71271

== ENCOUNTER 2025-05-30 14:46 | Outpatient (CLI) | payer BC, SELFPAY | END 2025-05-30 14:47 | disposition home or self-care (01) | PROVIDERS: PCP Family Medicine; Visit Provider Family Medicine | DX: R53.83 Other fatigue (principal) | CPT/HCPCS: 82306; 84443 ==